=== PATIENT | female | born 1955 | race Caucasian/White ===

== ENCOUNTER 2017-02-05 18:55 | Emergency (ER) | payer MEDICAID ==
[~2017-02-05 18:55] MED LIST: PROVENTIL0.09 MG/A1 INH
[2017-02-05 21:15] VITALS: BP 101/78
== END 2017-02-05 21:15 | disposition home or self-care (01) ==
LOC: ED 18:55
DX: S62.336A Displaced fracture of neck of fifth metacarpal bone, right hand, initial encounter for closed fracture (principal); K21.9 Gastro-esophageal reflux disease without esophagitis; Z98.51 Tubal ligation status; W22.8XXA Striking against or struck by other objects, initial encounter; Y93.89 Activity, other specified; Y92.89 Other specified places as the place of occurrence of the external cause; Y99.8 Other external cause status
CPT/HCPCS: J1885

== ENCOUNTER 2017-04-22 22:28 | Emergency (ER) | payer MEDICAID ==
[2017-04-22 23:38] LABS: PLATELET COUNT 325 x10^3mcL (130-400)
[2017-04-22 23:55] LABS: CALCIUM 9.7 mg/dL (8.5-10.1); CARBON DIOXIDE 28.8 mmol/L (21-32)
[2017-04-23] LABS: BAND NEUTROPHIL 10 % (0-10); RED CELL DISTRIBUTION WIDTH 19.4 % (11.5-14.5); SEGMENTED NEUTROPHILS 80 % (37-75)
[2017-04-23 00:01] LABS: BILIRUBIN TOTAL 0.5 mg/dL (0.20-1.00); MONOCYTE 4 % (0-7); TOTAL PROTEIN, SERUM 7.8 g/dL (6.4-8.2); rbc morphology (normal/abnorm) NORMAL (NORMAL)
[2017-04-23 00:03] LABS: ALBUMIN 3.3 g/dL (3.4-5.0)
[2017-04-23 00:11] LABS: CK-MB 0.7 ng/mL (0-3.6)
[2017-04-23 00:34] VITALS: BP 107/52
== END 2017-04-23 00:34 | disposition left against medical advice (07) ==
LOC: ED 22:28
PROVIDERS: Emergency Medicine
DX: J96.00 Acute respiratory failure, unspecified whether with hypoxia or hypercapnia (principal); J18.1 Lobar pneumonia, unspecified organism; J44.9 Chronic obstructive pulmonary disease, unspecified; I10 Essential (primary) hypertension
CPT/HCPCS: 36415; 83880; J7613; J7644; Q0092

== ENCOUNTER 2018-03-05 04:13 | Inpatient (IN) | payer MEDICAID ==
[~2018-03-05] VITALS: Ht 160 cm; Wt 55.8 kg
[~2018-03-05 04:13] MED LIST changes: +CLONIDINE HCL0.2 MG PO; +LIPI10 PO; +MEDDP PO; +SYN25 PO
[2018-03-05 05:41] LABS: BILIRUBIN TOTAL 0.17 mg/dL (0.20-1.00); CALCIUM 7.8 mg/dL (8.5-10.1); CARBON DIOXIDE 21.1 mmol/L (21-32); POTASSIUM SERUM 4.4 mmol/L (3.5-5.1)
[2018-03-05 05:53] LABS: TOTAL PROTEIN, SERUM 4.6 g/dL (6.4-8.2)
[2018-03-05 05:54] LABS: ALBUMIN 0.8 g/dL (3.4-5.0); CREATININE SERUM 6.2 mg/dL (0.6-1.0)
[2018-03-05 06:12] LABS: RED CELL DISTRIBUTION WIDTH 20.8 % (11.5-14.5)
[2018-03-05 06:13] LABS: PLATELET COUNT 386 x10^3mcL (130-400)
[2018-03-05 06:14] LABS: BASOPHIL % 0 % (0-2)
[2018-03-05 07:56] LABS: CHOLESTEROL/HDL RATIO 4.7
[2018-03-05 08:10] VITALS: BP 75/38
[2018-03-05 08:12] LABS: FREE T4 0.74 ng/dL (0.76-1.46)
[2018-03-05 08:13] LABS: T4(THYROXINE) 2.5 ug/dL (4.7-13.3)
[2018-03-05 08:35] LABS: T3 TOTAL 0.29 ng/mL
[2018-03-05 11:55] VITALS: BP 89/63
[2018-03-05 11:55] LABS: RED BLOOD CELLS 2.42 M/mm3 (4.10-5.10)
[2018-03-05 12:12] LABS: TOTAL IRON BINDING CAPACITY 100 ug/dL (250-450)
[2018-03-05 12:13] LABS: IRON 4 ug/dL (50-170)
[2018-03-05 12:29] VITALS: BP 89/63
[2018-03-05 14:38] LABS: AMPHETAMINE QUAL UR NONE DETECTED (NEG <=1000)
[2018-03-05 15:46] VITALS: BP 86/52
[2018-03-05 16:05] LABS: UA SPECIFIC GRAVITY 1.015 (1.005-1.035); microscopic required? YES; urine erythrocyte NEGATIVE (NEGATIVE)
[2018-03-05 19:33] VITALS: BP 93/50
[2018-03-05 23:10] VITALS: BP 100/56
[2018-03-06] VITALS (7 sets, daily range): BP systolic 91–112; BP diastolic 47–73
[2018-03-06 05:49] LABS: PLATELET COUNT 369 x10^3mcL (130-400)
[2018-03-06 05:55] LABS: CALCIUM 6.8 mg/dL (8.5-10.1); MAGNESIUM 2.5 mg/dL (1.8-2.4); PHOSPHOROUS 6.5 mg/dL (2.5-4.9); POTASSIUM SERUM 5.2 mmol/L (3.5-5.1)
[2018-03-06 06:07] LABS: RED CELL DISTRIBUTION WIDTH 20.6 % (11.5-14.5)
[2018-03-06 06:09] LABS: rbc morphology (normal/abnorm) ABNORMAL (NORMAL)
[2018-03-06 18:12] LABS: PLATELET COUNT 304 x10^3mcL (130-400)
[2018-03-06 18:17] LABS: RED CELL DISTRIBUTION WIDTH 18.9 % (11.5-14.5)
[2018-03-06 18:40] LABS: MONOCYTE 2 % (0-7); SEGMENTED NEUTROPHILS 93 % (37-75)
[2018-03-06 18:41] LABS: BAND NEUTROPHIL 2 % (0-10); BASOPHIL 0 % (0-2); PLATELET MORPHOLOGY PLATELETS NORMAL; rbc morphology (normal/abnorm) ABNORMAL (NORMAL)
[2018-03-07] VITALS (13 sets, daily range): BP systolic 85–122; BP diastolic 46–74; Ht 160 cm; Wt 55.8 kg
[2018-03-07 05:38] LABS: PLATELET COUNT 281 x10^3mcL (130-400)
[2018-03-07 05:45] LABS: CALCIUM 6.8 mg/dL (8.5-10.1); CARBON DIOXIDE 27.2 mmol/L (21-32); MAGNESIUM 1.8 mg/dL (1.8-2.4); PHOSPHOROUS 4.8 mg/dL (2.5-4.9); POTASSIUM SERUM 3.7 mmol/L (3.5-5.1)
[2018-03-07 05:46] LABS: rbc morphology (normal/abnorm) ABNORMAL (NORMAL)
[2018-03-07 05:52] LABS: CREATININE SERUM 4.6 mg/dL (0.6-1.0)
[2018-03-07 17:56] LABS: PLATELET COUNT 275 x10^3mcL (130-400)
[2018-03-07 18:29] LABS: RED CELL DISTRIBUTION WIDTH 18.2 % (11.5-14.5)
[2018-03-07 18:45] LABS: BAND NEUTROPHIL 0 % (0-10); BASOPHIL 0 % (0-2); MONOCYTE 3 % (0-7); SEGMENTED NEUTROPHILS 86 % (37-75)
[2018-03-07 18:47] LABS: tear drop cell (dacryocyte) 1+
[2018-03-07 18:48] LABS: burr cell (echinocyte) 1+; rbc morphology (normal/abnorm) ABNORMAL (NORMAL)
[2018-03-08 04:00] VITALS: BP 95/60
[2018-03-08 05:44] LABS: PLATELET COUNT 269 x10^3mcL (130-400)
[2018-03-08 05:50] LABS: CALCIUM 6.6 mg/dL (8.5-10.1); CARBON DIOXIDE 26.5 mmol/L (21-32); PHOSPHOROUS 4.4 mg/dL (2.5-4.9); POTASSIUM SERUM 4.1 mmol/L (3.5-5.1)
[2018-03-08 05:51] LABS: RED CELL DISTRIBUTION WIDTH 17.9 % (11.5-14.5)
[2018-03-08 05:55] LABS: CREATININE SERUM 5.8 mg/dL (0.6-1.0)
[2018-03-08 06:11] LABS: BASOPHIL % 0.1 % (0-2)
[2018-03-08 07:19] VITALS: BP 122/74
[2018-03-08 12:16] VITALS: BP 115/80
[2018-03-08 16:10] VITALS: BP 116/78
[2018-03-08 21:38] VITALS: BP 106/76
[2018-03-09 05:30] VITALS: BP 102/69
[2018-03-09 07:19] LABS: PLATELET COUNT 297 x10^3mcL (130-400)
[2018-03-09 07:28] LABS: RED CELL DISTRIBUTION WIDTH 18.7 % (11.5-14.5)
[2018-03-09 07:30] LABS: CALCIUM 6.8 mg/dL (8.5-10.1); CARBON DIOXIDE 28.4 mmol/L (21-32); MAGNESIUM 1.7 mg/dL (1.8-2.4); PHOSPHOROUS 3.7 mg/dL (2.5-4.9); POTASSIUM SERUM 4.2 mmol/L (3.5-5.1)
[2018-03-09 07:32] LABS: CREATININE SERUM 4.3 mg/dL (0.6-1.0)
[2018-03-09 09:15] VITALS: BP 114/79
[2018-03-09 09:30] LABS: BAND NEUTROPHIL 0 % (0-10); BASOPHIL 0 % (0-2); MONOCYTE 7 % (0-7); SEGMENTED NEUTROPHILS 78 % (37-75)
[2018-03-09 09:32] LABS: PLATELET MORPHOLOGY PLATELETS NORMAL; rbc morphology (normal/abnorm) ABNORMAL (NORMAL)
[2018-03-09 09:33] LABS: target cell (codocyte) 1+
[2018-03-09 12:08] VITALS: BP 126/82
[2018-03-09 16:40] VITALS: BP 139/83
[2018-03-09 21:10] VITALS: BP 128/81
[2018-03-10 05:20] VITALS: BP 127/72
[2018-03-10 08:21] LABS: PLATELET COUNT 311 x10^3mcL (130-400)
[2018-03-10 08:41] VITALS: BP 104/64
[2018-03-10 08:41] LABS: CALCIUM 7.3 mg/dL (8.5-10.1); CARBON DIOXIDE 26.4 mmol/L (21-32); MAGNESIUM 2.5 mg/dL (1.8-2.4); POTASSIUM SERUM 4.5 mmol/L (3.5-5.1)
[2018-03-10 08:49] LABS: CREATININE SERUM 5.3 mg/dL (0.6-1.0)
[2018-03-10 11:21] LABS: BAND NEUTROPHIL 1 % (0-10); BASOPHIL 0 % (0-2); MONOCYTE 3 % (0-7); SEGMENTED NEUTROPHILS 86 % (37-75)
[2018-03-10 11:25] LABS: rbc morphology (normal/abnorm) ABNORMAL (NORMAL)
[2018-03-10 11:26] LABS: PLATELET MORPHOLOGY PLATELETS NORMAL; RED CELL DISTRIBUTION WIDTH 18.2 % (11.5-14.5)
[2018-03-10 12:14] VITALS: BP 141/101
[2018-03-10] MEDS ORDERED: LEVAQUIN250 M1 PO (15:45)
[2018-03-10 15:47] VITALS: BP 141/101
[2018-03-10] MEDS ORDERED: NATURAL IRON65 MG PO (16:08)
[2018-03-10] MEDS ORDERED: NEP PO (16:12)
[2018-03-10] MEDS ORDERED: NIC14 TD (16:12)
[2018-03-10] MEDS ORDERED: REN800 PO (16:12)
[2018-03-10 16:38] VITALS: BP 98/67
== END 2018-03-10 16:50 | disposition home health service (06) | DRG 137 ==
LOC: ED 04:13 → DU 05:20 → IC 05:20 → DU 05:37 → ED 05:37 → DU 07:39 → IC 08:30 → DU 09:41
PROVIDERS: Emergency Medicine Emergency Medical Services; Family Medicine
DX: J69.0 Pneumonitis due to inhalation of food and vomit (principal); J96.01 Acute respiratory failure with hypoxia; N17.0 Acute kidney failure with tubular necrosis; N18.6 End stage renal disease; E43 Unspecified severe protein-calorie malnutrition; E87.2 Acidosis; I12.0 Hypertensive chronic kidney disease with stage 5 chronic kidney disease or end stage renal disease; J44.1 Chronic obstructive pulmonary disease with (acute) exacerbation; R55 Syncope and collapse; K21.9 Gastro-esophageal reflux disease without esophagitis; E03.9 Hypothyroidism, unspecified; D50.9 Iron deficiency anemia, unspecified; E87.5 Hyperkalemia; E83.39 Other disorders of phosphorus metabolism; Z68.1 Body mass index [BMI] 19.9 or less, adult; Z99.2 Dependence on renal dialysis
CPT/HCPCS: 36556; 36600; 83880; 84439; 94150; 97110-GP; 97116-GP; 97530-GP; 97535-GP; J1642; J1644; J1815; J1940; J1956; J2060; J2405; J2916; J2920; J2930; J3475; J3490; J7030; J7040; J7050; J7620; J7626; P9016; Q0092; Q0163

== ENCOUNTER 2018-03-22 17:21 | Emergency (ER) | payer MEDICAID ==
[~2018-03-22] VITALS: Ht 162.6 cm; Wt 49.9 kg
[~2018-03-22 17:21] MED LIST changes: +LEVAQUIN250 M1 PO; +NATURAL IRON65 MG PO; +NEP PO; +NIC14 TD; +REN800 PO
[2018-03-22 17:27] VITALS: Ht 162.6 cm; Wt 49.9 kg
[2018-03-22 18:11] VITALS: BP 108/78
== END 2018-03-22 18:11 | disposition home or self-care (01) ==
LOC: ED 17:21
DX: B02.9 Zoster without complications (principal); J44.9 Chronic obstructive pulmonary disease, unspecified; I12.0 Hypertensive chronic kidney disease with stage 5 chronic kidney disease or end stage renal disease; N18.6 End stage renal disease; M32.9 Systemic lupus erythematosus, unspecified; Z99.2 Dependence on renal dialysis

== ENCOUNTER 2018-03-27 12:04 | Emergency (ER) | payer MEDICAID ==
[~2018-03-27] VITALS: Ht 167.6 cm; Wt 50.8 kg
[2018-03-27 12:14] VITALS: Ht 167.6 cm; Wt 50.8 kg
[2018-03-27 12:46] LABS: BASOPHIL % 0.5 % (0-2)
[2018-03-27 12:55] LABS: PLATELET COUNT 418 x10^3mcL (130-400); RED CELL DISTRIBUTION WIDTH 21.4 % (11.5-14.5); rbc morphology (normal/abnorm) ABNORMAL (NORMAL)
[2018-03-27 13:04] LABS: BILIRUBIN TOTAL 0.14 mg/dL (0.20-1.00); CALCIUM 7.7 mg/dL (8.5-10.1); CARBON DIOXIDE 28.9 mmol/L (21-32); POTASSIUM SERUM 4.1 mmol/L (3.5-5.1)
[2018-03-27 13:19] LABS: ALBUMIN 0.9 g/dL (3.4-5.0); TOTAL PROTEIN, SERUM 4.7 g/dL (6.4-8.2)
[2018-03-27 13:20] LABS: CREATININE SERUM 5.5 mg/dL (0.6-1.0)
[2018-03-27 14:01] VITALS: BP 108/74
== END 2018-03-27 14:01 | disposition home or self-care (01) ==
LOC: ED 12:04
PROVIDERS: Emergency Medicine
DX: G25.3 Myoclonus (principal); I12.0 Hypertensive chronic kidney disease with stage 5 chronic kidney disease or end stage renal disease; N18.6 End stage renal disease; J44.9 Chronic obstructive pulmonary disease, unspecified; D64.9 Anemia, unspecified; M32.9 Systemic lupus erythematosus, unspecified; K21.9 Gastro-esophageal reflux disease without esophagitis; F17.210 Nicotine dependence, cigarettes, uncomplicated
CPT/HCPCS: 36415

== ENCOUNTER 2018-03-29 18:51 | Inpatient (IN) | payer MEDICAID ==
[~2018-03-29] VITALS: Ht 160 cm; Wt 50.8 kg
[2018-03-29 21:39] LABS: BASOPHIL % 0.9 % (0-2)
[2018-03-29 21:44] LABS: BILIRUBIN TOTAL 0.15 mg/dL (0.20-1.00); CALCIUM 7.9 mg/dL (8.5-10.1); CARBON DIOXIDE 25.2 mmol/L (21-32); POTASSIUM SERUM 4.9 mmol/L (3.5-5.1)
[2018-03-29 21:46] LABS: RED CELL DISTRIBUTION WIDTH 23.8 % (11.5-14.5)
[2018-03-29 21:47] LABS: PLATELET COUNT 493 x10^3mcL (130-400)
[2018-03-29 21:51] LABS: ALBUMIN 0.9 g/dL (3.4-5.0); TOTAL PROTEIN, SERUM 4.8 g/dL (6.4-8.2)
[2018-03-29 21:52] LABS: CREATININE SERUM 6.4 mg/dL (0.6-1.0)
[2018-03-30 00:11] LABS: MAGNESIUM 2.3 mg/dL (1.8-2.4); PHOSPHOROUS 7.9 mg/dL (2.5-4.9)
[2018-03-30 00:14] LABS: CHOLESTEROL/HDL RATIO 5.1
[2018-03-30 00:19] LABS: FREE T4 0.68 ng/dL (0.76-1.46)
[2018-03-30 00:21] LABS: FREE THYROXINE INDEX 1.1 ug/dL (1.4-4.5); T4(THYROXINE) 3.3 ug/dL (4.7-13.3)
[2018-03-30 00:37] LABS: T3 TOTAL 0.8 ng/mL
[2018-03-30 00:38] VITALS: BP 133/74
[2018-03-30 00:43] VITALS: BP 147/87
[2018-03-30] MEDS ORDERED: NEU300 PO (03:23)
[2018-03-30 04:50] LABS: IRON 28 ug/dL (50-170); TOTAL IRON BINDING CAPACITY 118 ug/dL (250-450)
[2018-03-30 06:00] VITALS: BP 133/78
[2018-03-30 07:27] LABS: RED BLOOD CELLS 2.4 M/mm3 (4.10-5.10)
[2018-03-30 09:32] VITALS: Ht 160 cm; Wt 50.8 kg
[2018-03-30 10:07] VITALS: BP 111/66
[2018-03-30 13:38] LABS: microscopic required? YES; urine erythrocyte NEGATIVE (NEGATIVE)
[2018-03-30 20:29] VITALS: BP 120/78
[2018-03-31 05:40] VITALS: BP 139/93
[2018-03-31 06:19] VITALS: BP 120/76
[2018-03-31 06:35] LABS: CALCIUM 8.1 mg/dL (8.5-10.1); CARBON DIOXIDE 23.2 mmol/L (21-32); MAGNESIUM 2.6 mg/dL (1.8-2.4); PHOSPHOROUS 7.9 mg/dL (2.5-4.9); POTASSIUM SERUM 5.3 mmol/L (3.5-5.1)
[2018-03-31 06:39] LABS: BASOPHIL % 0.7 % (0-2)
[2018-03-31 07:07] LABS: CREATININE SERUM 6.3 mg/dL (0.6-1.0)
[2018-03-31 08:01] LABS: PLATELET COUNT 506 x10^3mcL (130-400); RED CELL DISTRIBUTION WIDTH 23.7 % (11.5-14.5)
[2018-03-31 08:02] LABS: rbc morphology (normal/abnorm) ABNORMAL (NORMAL)
[2018-03-31 08:34] VITALS: BP 149/96
[2018-03-31 13:25] VITALS: BP 124/88
[2018-03-31 15:38] VITALS: BP 114/85
[2018-03-31 21:47] VITALS: BP 141/98
[2018-04-01 05:05] VITALS: BP 120/70
[2018-04-01 06:50] LABS: CALCIUM 7.6 mg/dL (8.5-10.1); CARBON DIOXIDE 26.9 mmol/L (21-32); CREATININE SERUM 3.9 mg/dL (0.6-1.0); MAGNESIUM 1.9 mg/dL (1.8-2.4); POTASSIUM SERUM 3.7 mmol/L (3.5-5.1)
[2018-04-01 07:05] LABS: BASOPHIL % 0.5 % (0-2); PLATELET COUNT 368 x10^3mcL (130-400)
[2018-04-01 07:12] LABS: RED CELL DISTRIBUTION WIDTH 23.4 % (11.5-14.5)
[2018-04-01 08:50] VITALS: BP 133/82
[2018-04-01 12:59] VITALS: BP 120/75
[2018-04-01 13:05] LABS: rbc morphology (normal/abnorm) ABNORMAL (NORMAL)
[2018-04-01 14:30] VITALS: BP 105/65
[2018-04-01 15:43] VITALS: BP 126/74
[2018-04-01 16:32] LABS: BASOPHIL % 0.4 % (0-2); PLATELET COUNT 298 x10^3mcL (130-400)
[2018-04-01 16:33] LABS: RED CELL DISTRIBUTION WIDTH 24.1 % (11.5-14.5)
[2018-04-01 16:40] LABS: rbc morphology (normal/abnorm) ABNORMAL (NORMAL)
[2018-04-01 20:34] VITALS: BP 99/64
[2018-04-02] VITALS (7 sets, daily range): BP systolic 99–131; BP diastolic 55–85
[2018-04-02 06:58] LABS: BASOPHIL % 0.9 % (0-2); PLATELET COUNT 337 x10^3mcL (130-400)
[2018-04-02 07:07] LABS: CALCIUM 7.5 mg/dL (8.5-10.1); CARBON DIOXIDE 27.8 mmol/L (21-32); CREATININE SERUM 3.9 mg/dL (0.6-1.0); PHOSPHOROUS 5.7 mg/dL (2.5-4.9); POTASSIUM SERUM 3.6 mmol/L (3.5-5.1)
[2018-04-02 08:30] LABS: RED CELL DISTRIBUTION WIDTH 25.5 % (11.5-14.5)
[2018-04-02 10:45] LABS: rbc morphology (normal/abnorm) ABNORMAL (NORMAL)
[2018-04-02] MEDS ORDERED: ZOVIRAX400 MG PO (15:53)
[2018-04-02] MEDS ORDERED: NIC14 TD (15:55)
[2018-04-02] MEDS ORDERED: FER300 PO (15:56)
[2018-04-02] MEDS ORDERED: COL100 PO (15:57)
[2018-04-02 17:24] LABS: BASOPHIL % 1.2 % (0-2); PLATELET COUNT 287 x10^3mcL (130-400)
[2018-04-02 17:31] LABS: RED CELL DISTRIBUTION WIDTH 20.8 % (11.5-14.5)
== END 2018-04-02 19:30 | disposition home or self-care (01) | DRG 206 ==
LOC: ED 18:51 → DU 22:09 → MU 22:09 → DU 03-30 00:18 → MU 03-30 09:59 → DU 03-31 19:41
PROVIDERS: Emergency Medicine; Family Medicine; Surgery
PROC: 02HV33Z Insertion of Infusion Device into Superior Vena Cava, Percutaneous Approach (ICD-10-PCS; 2018-03-31)
PROC: B5181ZA Fluoroscopy of Superior Vena Cava using Low Osmolar Contrast, Guidance (ICD-10-PCS; 2018-03-31)
PROC: 5A1D70Z Performance of Urinary Filtration, Intermittent, Less than 6 Hours Per Day (ICD-10-PCS; 2018-03-31)
PROC: 0JH63XZ Insertion of Tunneled Vascular Access Device into Chest Subcutaneous Tissue and Fascia, Percutaneous Approach (ICD-10-PCS; principal; 2018-03-31 12:00)
PROC: 5A1D70Z Performance of Urinary Filtration, Intermittent, Less than 6 Hours Per Day (ICD-10-PCS; 2018-04-01)
PROC: 30233N1 Transfusion of Nonautologous Red Blood Cells into Peripheral Vein, Percutaneous Approach (ICD-10-PCS; 2018-04-02)
DX: T82.818A Embolism due to vascular prosthetic devices, implants and grafts, initial encounter (principal); N17.0 Acute kidney failure with tubular necrosis; E43 Unspecified severe protein-calorie malnutrition; I12.0 Hypertensive chronic kidney disease with stage 5 chronic kidney disease or end stage renal disease; N18.6 End stage renal disease; J44.9 Chronic obstructive pulmonary disease, unspecified; D64.9 Anemia, unspecified; K21.9 Gastro-esophageal reflux disease without esophagitis; Z99.2 Dependence on renal dialysis; Y83.8 Other surgical procedures as the cause of abnormal reaction of the patient, or of later complication, without mention of misadventure at the time of the procedure; Y92.89 Other specified places as the place of occurrence of the external cause; E78.5 Hyperlipidemia, unspecified; B02.9 Zoster without complications
CPT/HCPCS: 83880; 84439; 97110-GP; 97530-GP; A4301; A4719; J0885-EC; J1644; J1956; J2250; J2916; J2997; J3010; J3490; J7030; J7040; J7050; J7620; P9016; P9045; Q0092; Q0163

== ENCOUNTER 2018-05-10 23:08 | Emergency (ER) | payer MEDICAID ==
[~2018-05-10] VITALS: Ht 162.6 cm; Wt 50.3 kg
[~2018-05-10 23:08] MED LIST changes: +COL100 PO; +FER300 PO; +NEU300 PO; +ZOVIRAX400 MG PO
[2018-05-10 23:26] VITALS: BP 170/110
== END 2018-05-11 01:29 | disposition left against medical advice (07) ==
LOC: ED 23:08
DX: Z53.21 Procedure and treatment not carried out due to patient leaving prior to being seen by health care provider (principal)

== ENCOUNTER 2018-05-12 22:34 | Emergency (ER) | payer MEDICAID ==
[~2018-05-12] VITALS: Ht 162.6 cm; Wt 48.1 kg
[2018-05-12 22:46] VITALS: Ht 162.6 cm; Wt 48.1 kg
[2018-05-13 00:15] LABS: BASOPHIL % 0.9 % (0-2); PLATELET COUNT 304 x10^3mcL (130-400)
[2018-05-13 00:24] LABS: UA SPECIFIC GRAVITY 1.015 (1.005-1.035); microscopic required? YES; urine erythrocyte 1+ (NEGATIVE)
[2018-05-13 00:27] LABS: CALCIUM 8.3 mg/dL (8.5-10.1); CARBON DIOXIDE 18.3 mmol/L (21-32); POTASSIUM SERUM 3.8 mmol/L (3.5-5.1)
[2018-05-13 00:29] LABS: CREATININE SERUM 5.9 mg/dL (0.6-1.0)
[2018-05-13 03:20] VITALS: BP 146/87
== END 2018-05-13 03:20 | disposition home or self-care (01) ==
LOC: ED 22:34
PROVIDERS: Emergency Medicine
DX: I12.0 Hypertensive chronic kidney disease with stage 5 chronic kidney disease or end stage renal disease (principal); N18.6 End stage renal disease; J44.1 Chronic obstructive pulmonary disease with (acute) exacerbation; Z99.2 Dependence on renal dialysis
CPT/HCPCS: 36415; J7613; J7644

== ENCOUNTER 2018-06-25 16:00 | Emergency (ER) | payer MEDICAID ==
[~2018-06-25] VITALS: Ht 160 cm; Wt 46.3 kg
[2018-06-25 16:22] VITALS: Ht 160 cm; Wt 46.3 kg
[2018-06-25 17:39] LABS: BASOPHIL % 0.6 % (0-2); PLATELET COUNT 282 x10^3mcL (130-400)
[2018-06-25 17:45] LABS: RED CELL DISTRIBUTION WIDTH 17.6 % (11.5-14.5)
[2018-06-25 17:56] LABS: BILIRUBIN TOTAL 0.2 mg/dL (0.20-1.00); CALCIUM 11.5 mg/dL (8.5-10.1); CARBON DIOXIDE 17.9 mmol/L (21-32); POTASSIUM SERUM 5.2 mmol/L (3.5-5.1)
[2018-06-25 18:00] LABS: ALBUMIN 2.2 g/dL (3.4-5.0); CREATININE SERUM 4.9 mg/dL (0.6-1.0); TOTAL PROTEIN, SERUM 5.6 g/dL (6.4-8.2)
[2018-06-25 18:51] VITALS: BP 153/122
== END 2018-06-25 18:51 | disposition home or self-care (01) ==
LOC: ED 16:00
PROVIDERS: Specialist
DX: I12.9 Hypertensive chronic kidney disease with stage 1 through stage 4 chronic kidney disease, or unspecified chronic kidney disease (principal); N18.9 Chronic kidney disease, unspecified; J44.9 Chronic obstructive pulmonary disease, unspecified
CPT/HCPCS: 36415; 36600; 83880; Q0092

== ENCOUNTER 2018-08-11 16:29 | Inpatient (IN) | payer MEDICAID ==
[~2018-08-11] VITALS: Ht 162.6 cm; Wt 46.4 kg
[2018-08-11 16:54] VITALS: Ht 162.6 cm; Wt 46.4 kg
[2018-08-11 18:57] LABS: BILIRUBIN TOTAL 0.3 mg/dL (0.20-1.00); CALCIUM 10.4 mg/dL (8.5-10.1); CARBON DIOXIDE 18.5 mmol/L (21-32); POTASSIUM SERUM 5.5 mmol/L (3.5-5.1); TOTAL PROTEIN, SERUM 7.1 g/dL (6.4-8.2)
[2018-08-11 19:03] LABS: BASOPHIL % 0.8 % (0-2); PLATELET COUNT 316 x10^3mcL (130-400); RED CELL DISTRIBUTION WIDTH 16.4 % (11.5-14.5)
[2018-08-11 19:04] LABS: CREATININE SERUM 4.7 mg/dL (0.6-1.0)
[2018-08-11 19:47] LABS: UA SPECIFIC GRAVITY 1.025 (1.005-1.035); microscopic required? YES; urine erythrocyte 1+ (NEGATIVE)
[2018-08-11 19:58] LABS: AMPHETAMINE QUAL UR NONE DETECTED (See below)
[2018-08-11 20:28] LABS: MAGNESIUM 2.5 mg/dL (1.8-2.4); PHOSPHOROUS 7.9 mg/dL (2.5-4.9)
[2018-08-11 20:35] LABS: T3 TOTAL 0.83 ng/mL
[2018-08-11 20:44] LABS: CHOLESTEROL/HDL RATIO 5.3
[2018-08-11 20:50] LABS: FREE T4 0.74 ng/dL (0.76-1.46)
[2018-08-11 20:52] LABS: FREE THYROXINE INDEX 1.6 ug/dL (1.4-4.5); T4(THYROXINE) 4.6 ug/dL (4.7-13.3)
[2018-08-11 21:13] VITALS: BP 145/95
[2018-08-12 05:01] VITALS: BP 137/82
[2018-08-12 07:19] LABS: CALCIUM 10.9 mg/dL (8.5-10.1); CARBON DIOXIDE 17.7 mmol/L (21-32); MAGNESIUM 2.4 mg/dL (1.8-2.4); PHOSPHOROUS 8.3 mg/dL (2.5-4.9); POTASSIUM SERUM 4.5 mmol/L (3.5-5.1)
[2018-08-12 07:22] LABS: CREATININE SERUM 4.4 mg/dL (0.6-1.0)
[2018-08-12 07:25] LABS: BASOPHIL % 0.7 % (0-2); PLATELET COUNT 285 x10^3mcL (130-400)
[2018-08-12 09:24] VITALS: BP 124/76
[2018-08-12 14:01] VITALS: BP 123/73
== END 2018-08-12 18:30 | disposition home or self-care (01) | DRG 199 ==
LOC: ED 16:29 → DU 19:32
PROVIDERS: Emergency Medicine; General Practice
DX: I16.0 Hypertensive urgency (principal); N17.0 Acute kidney failure with tubular necrosis; E87.5 Hyperkalemia; I12.0 Hypertensive chronic kidney disease with stage 5 chronic kidney disease or end stage renal disease; N18.6 End stage renal disease; E44.0 Moderate protein-calorie malnutrition; R73.03 Prediabetes; E83.41 Hypermagnesemia; E83.39 Other disorders of phosphorus metabolism; R80.9 Proteinuria, unspecified; E78.5 Hyperlipidemia, unspecified; F11.11 Opioid abuse, in remission; F17.210 Nicotine dependence, cigarettes, uncomplicated; Z99.2 Dependence on renal dialysis; Z91.15 Patient's noncompliance with renal dialysis
CPT/HCPCS: 82962; 83880; 84439; J1815; J2060; J3490; J7030; J7613; Q0092

== ENCOUNTER 2018-08-28 16:22 | Emergency (ER) | payer MEDICAID ==
[~2018-08-28] VITALS: Ht 162.6 cm; Wt 45.4 kg
[2018-08-28 16:25] VITALS: Ht 162.6 cm; Wt 45.4 kg
[2018-08-28 17:06] LABS: BASOPHIL % 0.7 % (0-2); PLATELET COUNT 386 x10^3mcL (130-400)
[2018-08-28 17:07] LABS: RED CELL DISTRIBUTION WIDTH 15.5 % (11.5-14.5)
[2018-08-28 17:17] LABS: CARBON DIOXIDE 16.2 mmol/L (21-32)
[2018-08-28 17:31] LABS: CREATININE SERUM 4.9 mg/dL (0.6-1.0)
[2018-08-28 18:19] VITALS: BP 172/88
== END 2018-08-28 18:19 | disposition home or self-care (01) ==
LOC: ED 16:22
PROVIDERS: Emergency Medicine
DX: N18.9 Chronic kidney disease, unspecified (principal); K21.9 Gastro-esophageal reflux disease without esophagitis; F11.10 Opioid abuse, uncomplicated
CPT/HCPCS: 36415

== ENCOUNTER 2018-09-14 15:41 | Emergency (ER) | payer MEDICAID ==
[~2018-09-14] VITALS: Ht 162.6 cm; Wt 50.8 kg
[2018-09-14 15:42] VITALS: Ht 162.6 cm; Wt 50.8 kg
[2018-09-14 16:12] LABS: BASOPHIL % 0.4 % (0-2); PLATELET COUNT 284 x10^3mcL (130-400)
[2018-09-14 16:15] LABS: RED CELL DISTRIBUTION WIDTH 16.1 % (11.5-14.5)
[2018-09-14 16:22] LABS: CARBON DIOXIDE 20.2 mmol/L (21-32); CREATININE SERUM 3.8 mg/dL (0.6-1.0); POTASSIUM SERUM 5.1 mmol/L (3.5-5.1)
[2018-09-14 16:45] VITALS: BP 163/90
== END 2018-09-14 16:45 | disposition home or self-care (01) ==
LOC: ED 15:41
PROVIDERS: Emergency Medicine
DX: I12.9 Hypertensive chronic kidney disease with stage 1 through stage 4 chronic kidney disease, or unspecified chronic kidney disease (principal); N18.9 Chronic kidney disease, unspecified; J44.9 Chronic obstructive pulmonary disease, unspecified; K21.9 Gastro-esophageal reflux disease without esophagitis; F11.10 Opioid abuse, uncomplicated; Z99.2 Dependence on renal dialysis; Z98.51 Tubal ligation status
CPT/HCPCS: 36415

== ENCOUNTER 2018-11-03 19:01 | Emergency (ER) | payer MEDICAID ==
[~2018-11-03] VITALS: Ht 160 cm; Wt 56.2 kg
[2018-11-03 19:07] VITALS: Ht 160 cm; Wt 56.2 kg
[2018-11-03 21:15] LABS: BASOPHIL % 0.6 % (0-2); PLATELET COUNT 275 x10^3mcL (130-400)
[2018-11-03 21:18] LABS: RED CELL DISTRIBUTION WIDTH 15.8 % (11.5-14.5)
[2018-11-03 21:32] LABS: BILIRUBIN TOTAL 0.18 mg/dL (0.20-1.00); CALCIUM 9.6 mg/dL (8.5-10.1); CARBON DIOXIDE 19.4 mmol/L (21-32); CREATININE SERUM 3.7 mg/dL (0.6-1.0); PHOSPHOROUS 7.6 mg/dL (2.5-4.9); POTASSIUM SERUM 4.9 mmol/L (3.5-5.1); TOTAL PROTEIN, SERUM 7.2 g/dL (6.4-8.2); URIC ACID 3.6 mg/dL (2.6-6.0)
[2018-11-03 21:33] LABS: ALBUMIN 3.2 g/dL (3.4-5.0)
[2018-11-03 23:47] VITALS: BP 167/115
== END 2018-11-03 22:35 | disposition left against medical advice (07) ==
LOC: ED 19:01
PROVIDERS: Emergency Medicine
DX: I12.0 Hypertensive chronic kidney disease with stage 5 chronic kidney disease or end stage renal disease (principal); E87.2 Acidosis; N18.6 End stage renal disease; K21.9 Gastro-esophageal reflux disease without esophagitis; J44.9 Chronic obstructive pulmonary disease, unspecified; M32.9 Systemic lupus erythematosus, unspecified; Z98.51 Tubal ligation status; Z99.2 Dependence on renal dialysis
CPT/HCPCS: 36415; Q0092

== ENCOUNTER 2019-01-18 18:12 | Emergency (ER) | payer MEDICAID ==
[~2019-01-18] VITALS: Ht 162.6 cm; Wt 52.2 kg
[2019-01-18 18:24] VITALS: Ht 162.6 cm; Wt 52.2 kg
[2019-01-18 20:40] VITALS: BP 150/72
== END 2019-01-18 21:10 | disposition home or self-care (01) ==
LOC: ED 18:12
DX: M25.552 Pain in left hip (principal); H10.89 Other conjunctivitis; J44.9 Chronic obstructive pulmonary disease, unspecified; I10 Essential (primary) hypertension; K21.9 Gastro-esophageal reflux disease without esophagitis; F11.10 Opioid abuse, uncomplicated; Z99.2 Dependence on renal dialysis; Z98.51 Tubal ligation status

== ENCOUNTER 2019-03-26 16:38 | Emergency (ER) | payer MEDICAID ==
[~2019-03-26] VITALS: Ht 162.6 cm; Wt 54.9 kg
[2019-03-26 16:52] VITALS: Ht 162.6 cm; Wt 54.9 kg
[2019-03-26 17:19] LABS: BASOPHIL % 0.3 % (0-2); PLATELET COUNT 308 x10^3mcL (130-400)
[2019-03-26 17:25] LABS: RED CELL DISTRIBUTION WIDTH 16.3 % (11.5-14.5)
[2019-03-26 17:36] LABS: BILIRUBIN TOTAL 0.26 mg/dL (0.20-1.00); CALCIUM 11.4 mg/dL (8.5-10.1); CARBON DIOXIDE 19.7 mmol/L (21-32); POTASSIUM SERUM 4.7 mmol/L (3.5-5.1); TOTAL PROTEIN, SERUM 6.3 g/dL (6.4-8.2)
[2019-03-26 17:42] LABS: ALBUMIN 2.9 g/dL (3.4-5.0)
[2019-03-26 18:36] VITALS: BP 159/106
== END 2019-03-26 18:36 | disposition home or self-care (01) ==
LOC: ED 16:38
PROVIDERS: Emergency Medicine
DX: I12.0 Hypertensive chronic kidney disease with stage 5 chronic kidney disease or end stage renal disease (principal); N18.6 End stage renal disease; D64.9 Anemia, unspecified; F17.210 Nicotine dependence, cigarettes, uncomplicated; J44.9 Chronic obstructive pulmonary disease, unspecified; K21.9 Gastro-esophageal reflux disease without esophagitis; F11.10 Opioid abuse, uncomplicated; Z98.51 Tubal ligation status
CPT/HCPCS: 36415; 99406

== ENCOUNTER 2019-04-25 18:28 | Emergency (ER) | payer MEDICAID ==
[~2019-04-25] VITALS: Ht 165.1 cm; Wt 53.5 kg
[2019-04-25 18:42] VITALS: BP 152/74; Ht 165.1 cm; Wt 53.5 kg
[2019-04-25 20:50] LABS: BILIRUBIN TOTAL 0.25 mg/dL (0.20-1.00); CALCIUM 12.5 mg/dL (8.5-10.1); CARBON DIOXIDE 20.1 mmol/L (21-32); POTASSIUM SERUM 4.1 mmol/L (3.5-5.1); TOTAL PROTEIN, SERUM 6.4 g/dL (6.4-8.2)
[2019-04-25 20:51] LABS: ALBUMIN 3.1 g/dL (3.4-5.0)
[2019-04-25 20:52] LABS: CREATININE SERUM 5.7 mg/dL (0.6-1.0)
[2019-04-25 20:56] LABS: BASOPHIL % 0.6 % (0-2); PLATELET COUNT 231 x10^3mcL (130-400)
[2019-04-25 20:58] LABS: RED CELL DISTRIBUTION WIDTH 15.3 % (11.5-14.5)
== END 2019-04-25 21:34 | disposition home or self-care (01) ==
LOC: ED 18:28
PROVIDERS: Emergency Medicine
DX: I12.0 Hypertensive chronic kidney disease with stage 5 chronic kidney disease or end stage renal disease (principal); N18.6 End stage renal disease; Z99.2 Dependence on renal dialysis
CPT/HCPCS: 36415

== ENCOUNTER 2019-05-07 12:07 | Emergency (ER) | payer MEDICAID ==
[~2019-05-07] VITALS: Ht 162.6 cm; Wt 53.6 kg
[2019-05-07 12:32] VITALS: Ht 162.6 cm; Wt 53.6 kg
[2019-05-07 13:43] LABS: CALCIUM 11.3 mg/dL (8.5-10.1); POTASSIUM SERUM 4.4 mmol/L (3.5-5.1)
[2019-05-07 13:47] LABS: CREATININE SERUM 4.9 mg/dL (0.6-1.0)
[2019-05-07 14:02] VITALS: BP 156/89
== END 2019-05-07 14:02 | disposition home or self-care (01) ==
LOC: ED 12:07
PROVIDERS: Emergency Medicine
DX: I12.0 Hypertensive chronic kidney disease with stage 5 chronic kidney disease or end stage renal disease (principal); N18.6 End stage renal disease; F11.10 Opioid abuse, uncomplicated; J44.9 Chronic obstructive pulmonary disease, unspecified; K21.9 Gastro-esophageal reflux disease without esophagitis; Z99.2 Dependence on renal dialysis; Z98.51 Tubal ligation status
CPT/HCPCS: 36415

== ENCOUNTER 2019-05-25 18:54 | Emergency (ER) | payer MEDICAID ==
[~2019-05-25] VITALS: Ht 162.6 cm; Wt 53.1 kg
[2019-05-25 19:04] VITALS: Ht 162.6 cm; Wt 53.1 kg
[2019-05-25 21:33] LABS: BASOPHIL % 0.6 % (0-2); PLATELET COUNT 273 x10^3mcL (130-400); RED CELL DISTRIBUTION WIDTH 14.9 % (11.5-14.5)
[2019-05-25 21:49] LABS: BILIRUBIN TOTAL 0.37 mg/dL (0.20-1.00); CALCIUM 11.1 mg/dL (8.5-10.1); CARBON DIOXIDE 16.5 mmol/L (21-32); MAGNESIUM 2.9 mg/dL (1.8-2.4); PHOSPHOROUS 7.6 mg/dL (2.5-4.9); POTASSIUM SERUM 5.4 mmol/L (3.5-5.1); TOTAL PROTEIN, SERUM 6.6 g/dL (6.4-8.2)
[2019-05-25 21:56] LABS: CREATININE SERUM 5.7 mg/dL (0.6-1.0)
[2019-05-26 02:34] VITALS: BP 149/101
[2019-05-26 02:38] LABS: CHOLESTEROL/HDL RATIO 4.7
[2019-05-26 02:43] LABS: T3 TOTAL 0.76 ng/mL
[2019-05-26 02:48] LABS: FREE T4 0.89 ng/dL (0.76-1.46); FREE THYROXINE INDEX 1.6 ug/dL (1.4-4.5); T4(THYROXINE) 4.8 ug/dL (4.7-13.3)
== END 2019-05-26 02:34 | disposition left against medical advice (07) ==
LOC: ED 18:54
PROVIDERS: Emergency Medicine; General Practice
DX: E87.5 Hyperkalemia (principal); M54.5 Low back pain; I12.0 Hypertensive chronic kidney disease with stage 5 chronic kidney disease or end stage renal disease; N18.6 End stage renal disease; K21.9 Gastro-esophageal reflux disease without esophagitis; M32.9 Systemic lupus erythematosus, unspecified; F17.200 Nicotine dependence, unspecified, uncomplicated; Z98.51 Tubal ligation status; Z99.2 Dependence on renal dialysis; Z71.6 Tobacco abuse counseling
CPT/HCPCS: 83880; 84439; 99406; J2270; J2405

== ENCOUNTER 2019-06-05 17:17 | Emergency (ER) | payer MEDICAID ==
[~2019-06-05] VITALS: Ht 162.6 cm; Wt 56.7 kg
[2019-06-05 17:24] VITALS: BP 138/97; Ht 162.6 cm; Wt 56.7 kg
== END 2019-06-05 20:47 | disposition left against medical advice (07) ==
LOC: ED 17:17
DX: Z53.21 Procedure and treatment not carried out due to patient leaving prior to being seen by health care provider (principal)
CPT/HCPCS: 83880

== ENCOUNTER 2019-06-10 21:36 | Inpatient (IN) | payer MEDICAID ==
[~2019-06-10] VITALS: Ht 162.6 cm; Wt 57.0 kg
--- NOTE | 2019-06-10 21:47 | NUR ---
EKG IN PROGRESS BY ERT VANESSA
--- NOTE | 2019-06-10 21:57 | NUR ---
PT PRESENTED TO THE ED WITH C/O LOWER BACK PAIN THAT BEGAN 1 WEEK AGO. PT STS THAT SHE FELL LAST WEEK AND LANDED ON HER BOTTOM. PT CAME TO THIS ER AND STS, " THEY DID NOT PRESCRIBE ME ANY PAIN MEDICATIONS". PT RATES HER PAIN 10/10. WHEN ASKED TO DESCRIBE HER PAIN, PT STATED, " I DONT KNOW HOW IT FEELS. I JUST KNOW THAT IT HURTS". PT TOOK MOTRIN WITH MINIMAL PAIN RELIEF. PT STS THAT SHE HAS MISSED 3 DIALYSIS SESSIONS BECAUSE OF HER BACK PAIN. PT RECEIVES DIALYSIS ON TUESDAY AND TUESDAY. PT ALSO STS THAT SHE HAS HAD A COUGH FOR THE PAST 3 WEEKS. DIALYSIS PORT NOTED TO RIGHT UPPER CHEST. PT CONNECTED TO FULL WOOL DYER. WILL CONT TO MONITOR.
--- NOTE | 2019-06-10 22:00 | NUR ---
DR. PALMER AT BEDSIDE FOR MSE
--- NOTE | 2019-06-10 22:33 | NUR ---
MECHANICAL TECH AT BEDSIDE FOR LAB DRAW
[2019-06-10 22:46] LABS: BASOPHIL % 0.8 % (0-2); PLATELET COUNT 253 x10^3mcL (130-400)
[2019-06-10 22:47] LABS: RED CELL DISTRIBUTION WIDTH 15.9 % (11.5-14.5)
[2019-06-10 23:04] LABS: BILIRUBIN TOTAL 0.2 mg/dL (0.20-1.00); CALCIUM 8.7 mg/dL (8.5-10.1); CARBON DIOXIDE 15.6 mmol/L (21-32); CHOLESTEROL/HDL RATIO 5.4; POTASSIUM SERUM 4.5 mmol/L (3.5-5.1)
[2019-06-10 23:05] LABS: ALBUMIN 2.5 g/dL (3.4-5.0); TOTAL PROTEIN, SERUM 5.7 g/dL (6.4-8.2)
[2019-06-10 23:06] LABS: CREATININE SERUM 4.6 mg/dL (0.6-1.0)
[2019-06-10 23:36] LABS: T3 TOTAL 0.71 ng/mL
[2019-06-10 23:39] LABS: FREE T4 0.7 ng/dL (0.76-1.46); FREE THYROXINE INDEX 1.7 ug/dL (1.4-4.5); T4(THYROXINE) 4.9 ug/dL (4.7-13.3)
--- NOTE | 2019-06-10 23:53 | NUR ---
RT AT BEDSIDE FOR ABG BLOOD DRAW
[2019-06-11] VITALS (7 sets, daily range): BP systolic 112–153; BP diastolic 60–88; Ht 162.6 cm; Wt 57.0 kg
--- NOTE | 2019-06-11 01:20 | NUR ---
PTS' O2 SATURATION ON RA 87%. PT PLACED ON 2 L NC. PT NOW STATTING 94%. WILL CONT TO [facility].
--- NOTE | 2019-06-11 01:29 | NUR ---
REPORT GIVEN TO LINDEN FRAUSTO FOR CONTINUITY OF CARE. ALL QUESTIONS/CONCERNS ADDRESSED AT THIS TIME
--- NOTE | 2019-06-11 02:41 | NUR ---
PT IS SLEEPING, EASILY AROUSABLE. NO S/S OF ACUTE DISTRESS NOTED. BED IN LOW POSITION. CALL LIGHT IN REACH. WILL CONT TO MONITOR
[2019-06-11 03:50] LABS: MAGNESIUM 2.5 mg/dL (1.8-2.4); PHOSPHOROUS 6.8 mg/dL (2.5-4.9)
--- NOTE | 2019-06-11 04:13 | NUR ---
RECEIVED PT FROM ED, C/O MILD BACK PAIN 01/07, PREVIOUS MEDICATED IN ER. ORIENTED PT TO ROOM. DRY SCAB TO RFA, FUNCTIONAL ARCHITECT, PHOTOS DOCUMENTED. TRICE CATH TO RIGHT CHEST WITHOUT DRESSING, NEW DRESSING APPLIED. BED IN LOWEST POSITION, SIDE RAILS UP X2, CALL LIGHT WITHIN REACH. WILL CONTINUE TO MONITOR.
[2019-06-11 04:55] LABS: BASOPHIL % 0.7 % (0-2); PLATELET COUNT 259 x10^3mcL (130-400)
[2019-06-11 04:56] LABS: RED CELL DISTRIBUTION WIDTH 15.9 % (11.5-14.5)
[2019-06-11 05:25] LABS: CALCIUM 8.8 mg/dL (8.5-10.1); CARBON DIOXIDE 15.9 mmol/L (21-32); MAGNESIUM 2.5 mg/dL (1.8-2.4); PHOSPHOROUS 7.2 mg/dL (2.5-4.9)
[2019-06-11 05:34] LABS: CREATININE SERUM 4.7 mg/dL (0.6-1.0)
--- NOTE | 2019-06-11 06:34 | NUR ---
PT CURRENTLY RESTING IN BED, NO ACUTE DISTRESS. ALL NEEDS MET AND ATTENDED TO. NO SIGNIFICANT CHANGES. IV PATENT AND INTACT. BED IN LOWEST POSITION, SIDE RAILS UP X2, CALL LIGHT WITHIN REACH. WILL ENDORSE CARE TO ONCOMING NURSE.
--- NOTE | 2019-06-11 07:30 | NUR ---
AAO TIMES 4. TELE # 18 SR. IV SITE RUE CDI, PATENT. RIGHT CHEST WALL TRICE CATH WITH SITE CDI. LUE WITH AV SHUNT NOT READY TO BE USED YET PER PATIENT. NO C/O PAIN. NO SOB. COOPERATIVE.
[2019-06-11] MEDS ORDERED: RENVELA800 M1 PO (12:52)
[2019-06-11] MEDS ORDERED: NOR5 PO (12:53)
[2019-06-11] MEDS ORDERED: LIPI10 PO (12:53)
--- NOTE | 2019-06-11 16:00 | NUR ---
ECHO COMPLETED. DR. DANIELSON NOTIFIED ABOUT FINDINGS. REQUESTED CARDIAC CONSULT FOR NEW ONSET OF CHF.
--- NOTE | 2019-06-11 17:59 | NUR ---
AAO TIMES 4. TELE # 18 SR. IV SITE RUE CDI, PATENT. COOPERATIVE. NO C/O PAIN. RIGHT CHEST WALL TRICE CATH SITE CDI. AV SHUNT TO LUE, NOT IN USE, STILL WAITING FOR IT TO BE READY TO BE USED.
--- NOTE | 2019-06-11 19:45 | NUR ---
SHIFT REASSESSMENT DONE.PATIENT ALERT AND ORIENTED.O2 AT 3 LITERS N/C.SOB ON ADMIT.MILD GEN WEAKNESS.FALL PRECAUTION.PHYSICAL THERAPY.HEPLOCK JANEE.TELE 18 SR.RFA DRY SCAB NOTED,JENNIFER.LUE AV SHUNT NOT IN USE YET.R CHEST TRICE CATH HD ACCESS FOR NOW,HAD HD TODAY 2.5 LITERS OUT.HEPLOCK INTACT.CALL LIGHT IN REACH.
--- NOTE | 2019-06-11 20:55 | NUR ---
PATIENT HHN TX SCHEDULED,NO SOB AT THIS TIME,HAD HD TODAY 2.5 LITERS OUT.R CHEST TRICE CATH INTACT.
--- NOTE | 2019-06-12 02:00 | NUR ---
SLEEPING WELL DURING THE NIGHT.
[2019-06-12 04:53] LABS: UA SPECIFIC GRAVITY 1.015 (1.005-1.035); microscopic required? YES; urine erythrocyte 1+ (NEGATIVE)
[2019-06-12 05:05] LABS: AMPHETAMINE QUAL UR NONE DETECTED (See below)
--- NOTE | 2019-06-12 05:44 | NUR ---
I AND O MEASURED.PATIENT DID STILL URINATE LAST NIGHT,SCANTY.UA UDS SENT TO LAB.HEPLOCK INTACT.WILL ENDORSE TO NEXT SHIFT.
[2019-06-12 06:04] VITALS: BP 140/88
[2019-06-12 06:25] LABS: BASOPHIL % 0.6 % (0-2); PLATELET COUNT 221 x10^3mcL (130-400)
[2019-06-12 06:44] LABS: CALCIUM 8.6 mg/dL (8.5-10.1); CREATININE SERUM 3.6 mg/dL (0.6-1.0); PHOSPHOROUS 5.4 mg/dL (2.5-4.9); POTASSIUM SERUM 3.8 mmol/L (3.5-5.1)
[2019-06-12 06:50] LABS: RED CELL DISTRIBUTION WIDTH 16.3 % (11.5-14.5)
--- NOTE | 2019-06-12 08:08 | NUR ---
AAO TIMES 4. TELE # 18 SR. LUNGS CTA. NO SOB. O2 SAT ON RA 94%. BS'S ACTIVE TIMES 4. TENORIO STRONG. RIGHT CHEST WALL WITH TRICE CATH. LUE WITH AV SHUNT, NOT BEING USED YET. IV SITE RUE PATENT, CDI. PERIPHERAL PUSLES PALPABLE. NO EDEMA. COOPERATIVE.
[2019-06-12 08:15] VITALS: BP 154/90
--- NOTE | 2019-06-12 09:22 | NUR ---
RECEIVED ORDERS FOR US GUIDED THORACENTESIS FOR DIAGNOSTIC SPECIMEN. PROCEDURE EXPLAINED BY BRADLEY WEI DONE. FLUID AMOUNT DECREASED. PATIENT DECLINES PROCEDURE. PATIENT'S NURSE PRECIOUS SKINNER.
--- NOTE | 2019-06-12 11:57 | NUR ---
Initial Nutrition Assessment: 257T/B SADIQ PABLO IA HR Dx: SOB, renal failure PMHx: ESRD, COPD, Emphysema, Lupus, Hypertension PSHx: None Labs: BUN 33H, CREAT 3.6H, P 5.4H, HGB 9.9L Meds: Colace, Lasix, Lipitor, phoslo, zofran Diet: Renal PO Intake: (06/12) breakfast 85%, (06/11) breakfast 30%, lunch, dinner 50% Ht: 162.56 cm (64") Wt: 57 kg (125#) BMI: 21.6 kg/m2 Bed scale: 124.5# IBW: 120# (55 kg) %IBW: 104 UBW: 125# Age: 63/F Food Allergies: NKFA Skin: RFA scab Jaxon: 20 Edema: none GI: Last BM: 06/11 Per H&P, Pt is a 63 yoF with a PMH of ESRD (HD: Tuesday and Tuesday) who presents with gradual onset, constant, worsening mild shortness of breath for 1 day. RDN Visit (06/12): Patient was alert and oriented but appeared very sad. Patient said that he appetite is good and she is able to finish all of her breakfast this morning. FNS received consult for 'malnutrition' on 06/11. Problem with: N/V/D/C: no Problems with: Chewing/Swallowing: none Current appetite: good Recent wt change: none %wt change: n/a Vitamin/Supplement use: none Special diet at home: regular Physical activity: none Nutrition education given: Importance of eating nutrient dense foods d/t dialysis was emphasized. Patient is willing to consume ONS Nepro. Food-drug interactions: lipitor- avoid grapefruit Education given: no Estimated Nutritional Needs Based on actual body weight 57 kg Energy: 6842-5171 kcal/d (30-35 kcal/kg)- HD Protein: 68-80 g/d (1.2-1.4 g/kg) - HD Fluid: 7316-9883 ml/d (1 ml/kcal) or per doctor Nutrition Diagnosis 1. Impaired nutrient utilization related to renal dysfunction as evidenced by BUN 33, CREAT 3.6 Intervention 1. Recommend continuing Renal diet w/ Nepro BID. Discussed recommendations with SULEMAN Watson. Monitor/Evaluate Goal: PO intake at least 75% of estimated needs Monitor: PO intake, Labs, GI function F/U in 3-5 days as moderate risk 06/15-
--- NOTE | 2019-06-12 11:58 | NUR ---
1. Recommend continuing Renal diet w/ Nepro BID. Discussed recommendations with SULEMAN Watson.
[2019-06-12 12:22] VITALS: BP 125/79
[2019-06-12 17:01] VITALS: BP 147/72
--- NOTE | 2019-06-12 18:32 | NUR ---
AAO TIMES 4. TELE # 18 SR. VS'S STABLE. NO SOB. NO C/O PAIN. IV SITE RIGHT FOOT CDI. COOPERATIVE AT THIS TIME, SHE DID REFUSE THE ULTRA SOUND GUIDED THORACENTESIS THIS AM, SHE SAID SHE DIDNT WANT TO BE POKED, I DID EDUCATION AND THE RADIOLOGY NURSE AND THE RADIOLOGIST BUT SHE STILL REFUSED. GOOD APPETITE.
--- NOTE | 2019-06-12 19:19 | NUR ---
SHIFT REASSESSMENT DONE.PATIENT ALERT AND ORIENTED.MAKE NEEDS KNOWN.FAMILY AT BEDSIDE,VISITING,IV PAMELA R FOOT.TKO.WILL HEPLOCK LATER.LUE AV SHUNT NOT IN USE YET.TELE 18 SR.CALL LIGHT IN REACH.R CHEST TRICE CATH HD ACCESS FOR NOW.
[2019-06-12 20:22] VITALS: BP 144/81
--- NOTE | 2019-06-12 20:39 | NUR ---
ALL PM MEDS GIVEN,ALSO NEED NORCO/PAIN AND GIVEN,SWALLOWS WELL.
--- NOTE | 2019-06-12 20:40 | NUR ---
HHN TX ALSO BEFORE PM MEDS AND TOLERATING WELL.
--- NOTE | 2019-06-13 01:03 | NUR ---
BEN Barreto FOOT,REMINDED TO BE CAREFUL WITH IT,VERY HARD STICK.
--- NOTE | 2019-06-13 04:00 | NUR ---
SLEEPING WELL AT NOC.NO DISTRESS.
[2019-06-13 06:05] VITALS: BP 140/78
--- NOTE | 2019-06-13 06:40 | NUR ---
PATIENT AWAKE AT THIS TIME,WATCHING TV.NO RESP DISTRESS.
[2019-06-13 06:45] LABS: BASOPHIL % 0.9 % (0-2); PLATELET COUNT 237 x10^3mcL (130-400)
[2019-06-13 06:48] LABS: RED CELL DISTRIBUTION WIDTH 15.7 % (11.5-14.5)
[2019-06-13 06:49] LABS: CALCIUM 9.4 mg/dL (8.5-10.1); CARBON DIOXIDE 25.4 mmol/L (21-32); POTASSIUM SERUM 3.3 mmol/L (3.5-5.1)
--- NOTE | 2019-06-13 07:05 | NUR ---
RECIEVED PT FROM SLOT ATTENDANT NURSE. PT RESTING IN BED, AOX4, RESP E/U ON RA. DENIES SOB AT THIS TIME, NO ACUTE DISTRESS NOTED. ON TELE 18 SHOWING NSR, HR: 89. SALINE LOCKED TO R FOOT W/ NO ERYTHEMA OR EDEMA. TRICE CATH IN PLACE TO R CHEST CDI. BED IN LOWEST POSITION AND CALL LIGHT WITHIN REACH. WILL CONTINUE TO MONITOR.
[2019-06-13 09:28] VITALS: BP 159/86
[2019-06-13] MEDS ORDERED: PHOS PO (12:29)
[2019-06-13] MEDS ORDERED: CARVEDILOL3.125 M1 PO (12:30)
[2019-06-13] MEDS ORDERED: LIPITOR40 MG PO (12:38)
--- NOTE | 2019-06-13 12:44 | NUR ---
PT IN BED HAVING LUNCH, AOX4, RESP E/U ON RA. C/O OF BACK PAIN RATED 8/10, MEDICATED ORDERED PER EMAR. DIALYSIS STARTED AT THIS TIME. BED IN LOWEST POSITION AND CALL LIGHT WITHIN REACH. WILL CONTINUE TO MONIITOR.
== END 2019-06-13 16:26 | disposition home or self-care (01) | DRG 194 ==
LOC: ED 21:36 → DU 06-11 00:54
PROVIDERS: Neuromusculoskeletal Medicine, Sports Medicine; Specialist; ADMIT Internal Medicine
DX: I13.2 Hypertensive heart and chronic kidney disease with heart failure and with stage 5 chronic kidney disease, or end stage renal disease (principal); J96.01 Acute respiratory failure with hypoxia; M32.9 Systemic lupus erythematosus, unspecified; J90 Pleural effusion, not elsewhere classified; E44.0 Moderate protein-calorie malnutrition; I42.9 Cardiomyopathy, unspecified; E83.39 Other disorders of phosphorus metabolism; N18.6 End stage renal disease; E83.41 Hypermagnesemia; I50.23 Acute on chronic systolic (congestive) heart failure; J44.1 Chronic obstructive pulmonary disease with (acute) exacerbation; I16.0 Hypertensive urgency; D63.1 Anemia in chronic kidney disease; M54.5 Low back pain; E03.9 Hypothyroidism, unspecified; E78.00 Pure hypercholesterolemia, unspecified; D53.9 Nutritional anemia, unspecified; K21.9 Gastro-esophageal reflux disease without esophagitis; F17.210 Nicotine dependence, cigarettes, uncomplicated; F11.10 Opioid abuse, uncomplicated; Z99.2 Dependence on renal dialysis; Z68.21 Body mass index [BMI] 21.0-21.9, adult; Z91.15 Patient's noncompliance with renal dialysis
CPT/HCPCS: 32555; 36600; 83880; 84439; 94150; 97116-GP; G0378; J0456; J0696; J1940; J2270; J2405; J3490; J7030; J7040; J7620; Q0092

== ENCOUNTER 2019-06-21 19:26 | Inpatient (IN) | payer MEDICAID ==
[~2019-06-21] VITALS: Ht 162.6 cm; Wt 51.7 kg
[~2019-06-21 19:26] MED LIST changes: +CARVEDILOL3.125 M1 PO; +LIPITOR40 MG PO; +NOR5 PO; +PHOS PO; +RENVELA800 M1 PO
[2019-06-21 19:37] VITALS: Ht 162.6 cm; Wt 51.7 kg
--- NOTE | 2019-06-21 20:08 | NUR ---
PATIENT SEEN WITH COMPLAINT OF SHORTNESS OF BREATH X 3 DAYS. RECPORT SHE WAS NOT ABLE TO COMPLETE DIALYSIS TODAY DUE TO THE SOB AND WEAKNESS. PATIENT SEEN WITH BOUTS OF COUGHING , NON PRODICTIVE, H/O COPD. MD AT THE BEDSIDE. PATIENT WAS PUT ON THE MONITOR, NSR ON THE CARDIAC SCOPE. 1.5 LITERS OXYGEN GIVEN , SATURATION IS 93%
[2019-06-21 21:05] LABS: BASOPHIL % 0.1 % (0-2); PLATELET COUNT 206 x10^3mcL (130-400); RED CELL DISTRIBUTION WIDTH 14.5 % (11.5-14.5)
--- NOTE | 2019-06-21 21:11 | NUR ---
RESPIRATORY AT THE BEDSIDE, BREATHING TREATMENT COMPLETED. PATIENT IS COUGHING CONSTANTLY.
[2019-06-21 21:17] LABS: CALCIUM 8.9 mg/dL (8.5-10.1); CARBON DIOXIDE 22.9 mmol/L (21-32); CREATININE SERUM 2.9 mg/dL (0.6-1.0); POTASSIUM SERUM 4.7 mmol/L (3.5-5.1)
[2019-06-21 21:21] LABS: BILIRUBIN TOTAL 0.5 mg/dL (0.20-1.00); PHOSPHOROUS 3.8 mg/dL (2.5-4.9); TOTAL PROTEIN, SERUM 6.4 g/dL (6.4-8.2)
[2019-06-21 21:24] LABS: ALBUMIN 2.9 g/dL (3.4-5.0)
--- NOTE | 2019-06-21 21:52 | NUR ---
ATTEMPT TO INSERT SALINE LOCK WAS UNSUCCESSFUL. RN HELP REQUESTED. RESPIRATORY AT THE BEDSIDE BREATHING TREATMENT GIVEN.
--- NOTE | 2019-06-21 23:24 | NUR ---
PATIENT IS RESTING, NO ACUTE DISTRESS.
--- NOTE | 2019-06-21 23:48 | NUR ---
REPORT WAS GIVEN TO JOSHUA. PATIENT TRANSPORTED TO ROOM 219 A.
[2019-06-22] VITALS (7 sets, daily range): BP systolic 120–149; BP diastolic 72–83
--- NOTE | 2019-06-22 00:08 | NUR ---
RECEIVED PT VIA [employer] FROM E/D, ACCOMPANIED BY RN AND TRANSPORTER. PT A/A/O X 4, CALM, COOPERATIVE. AMBULATORY, NO GAIT OR BALANCE IMPAIRMENT NOTED WHEN WALKING FROM [facility] TO BED; ASSISTED FALL ON HER BUTTOCKS 06/21/19, NO BRUISING, SKIN INTACT, C/O CONSTANT DULL BACK PAIN 07/10 2/2 COUGHING AND FALL, RELIEVED BY REST AND PAIN MEDICATIONS. ON TELE # 20, HR 92, NSR, DENIES CHEST PAIN OR DISCOMFORT AT THIS TIME. LUNGS CONGESTED BILATERALLY, CHEST RISING EVENLY, 2LNC, 93%, NON-PRODUCTIVE COUGH. ABD SOFT, DISTENDED, NORMOACTIVE BOWEL SOUNDS X 4 QUADS, LAST BM 06/19/19, FORMED; WEARS DENTURES (NOT W/ PT). VOIDS FREELY, HAS R UPPER CHEST WALL TRICE CATH, CDI; DIALYSIS MF; HAD INCOMPLETE DIALYSIS 06/21/19. IV SITE RW 22G, CDI. ORIENTED PT TO ROOM, BED CONTROLS, CALL LIGHT SYSTEM. SIDE RAILS UP X 2, BED IN LOW POSITION. WILL ENDORSE TO JETT ALBARRAN.
[2019-06-22 01:00] LABS: microscopic required? YES; urine erythrocyte TRACE (NEGATIVE)
--- NOTE | 2019-06-22 01:33 | NUR ---
AWAKE C/O BACKPAIN, NORCO 1 TAB PO GIVEN PRESCRIBED. WILL CONTINUE TO MONITOR.
[2019-06-22 01:50] LABS: AMPHETAMINE QUAL UR NONE DETECTED (See below)
--- NOTE | 2019-06-22 02:42 | NUR ---
PATIENT APPEARS TO BE SLEEPING AT THIS TIME AFTER PAIN MEDS WAS GIVEN.
--- NOTE | 2019-06-22 05:17 | NUR ---
SLEPT AT LONG INTERVALS. C/O BACKPAIN X1 THE ENTIRE SHIFT AND MEDICATED PREXCRIBED. ALL NEEDS ATTENDED.
[2019-06-22 06:44] LABS: BASOPHIL % 0.3 % (0-2); PLATELET COUNT 211 x10^3mcL (130-400); RED CELL DISTRIBUTION WIDTH 14.4 % (11.5-14.5)
[2019-06-22 07:17] LABS: CALCIUM 9.2 mg/dL (8.5-10.1); CARBON DIOXIDE 25.8 mmol/L (21-32); CREATININE SERUM 3.7 mg/dL (0.6-1.0); MAGNESIUM 2.6 mg/dL (1.8-2.4); PHOSPHOROUS 5.5 mg/dL (2.5-4.9); POTASSIUM SERUM 4.2 mmol/L (3.5-5.1)
--- NOTE | 2019-06-22 07:30 | NUR ---
RECEIVED PT FROM JIGGER MACHINE OPERATOR RN. Ramon/JOSE. TELE#20. DENIES CHEST PAIN/PRESSURE. RESPIRATIONS EQUAL AND UNLABORED ON RA. DENIES SOB AT THIS TIME. PT DENIES ANY N/V. RIGHT UPPER CHEST TRICE CATHETER IN PLACE, DRESSING CDI. JANEE FISTULA IN PLACE, BRUIT AND THRILL NOTED. IV TO RW SALINE LOCKED, NO REDNESS OR SWELLING NOTED. PT C/O TENDERNESS TO BACK. GIVEN PILLOW FOR BACK. PT ABLE TO REPOSITION SELF. IV SALINE LOCKED TO RW. NO REDNESS OR SWELLING NOTED. WILL CONTINUE TO MONITOR. CALL LIGHT IN REACH. BED IN LOWEST POSITION.
--- NOTE | 2019-06-22 13:24 | NUR ---
PT SITTING UP IN BED. NO ACUTE RESP DISTRESS NOTED ON RA. DENIES SOB AT THIS TIME. IV TO RW FLUSHED WELL. IV ANTIBIOTICS INFUSING ORDERED. GIVEN PO MEDS. TOLERATED WELL. NICODERM PATCH APPLIED TO FAZAL. WILL CONTINUE TO MONITOR. CALL LIGHT IN REACH. BED IN LOWEST POSITION.
--- NOTE | 2019-06-22 15:25 | NUR ---
PT SITTING UP IN BED. NO ACUTE RESP DISTRESS NOTED ON RA. PT C/O PAIN TO MID BACK 06/09 TENDERNESS. MEDICATED PER EMAR. WILL CONTINUE TO MONITOR. CALL LIGHT IN REACH. BED IN LOWEST POSITION.
--- NOTE | 2019-06-22 17:45 | NUR ---
PT SITTING UP IN BED. EATING DINNER. NO ACUTE RESP DISTRESS NOTED ON RA. PT STILL C/O BACK PAIN TO MID BACK. PT STATES "THE PAIN MEDICATIONS HELP FOR A LITTLE AND THE PAIN IS BACK. PT STATES SHE DID TELL THE DOCTOR THIS AM DURING ROUNDS SHE FELL. GIVEN PO MEDS. TOLERATED WELL. PAGED DR. MCINTOSH REGARDING PT BACK PAIN. AWAITING FOR CALL BACK. WILL CONTINUE TO MONITOR. CALL LIGHT IN REACH. BED IN LOWEST POSITION.
--- NOTE | 2019-06-22 19:20 | NUR ---
RECEIVED PT IN BED COMFORTABLY RESTING. NO SOB NOTED. DENIES ANY PAIN AT THIS TIME. SALINE LOCK TO RFA. TRICE CATH FOR HD ACCESS.BED IN LOWEST POSITION,CALL LIGHT JOHANNY YOUNG. WILL CONTINUE TO MONITOR.
--- NOTE | 2019-06-22 22:29 | NUR ---
PT C/O BACK PAIN 06/09. MEDICATED NORCO 7.5/325MG PO ORDERED. WILL CONTINUE TO MONITOR.
--- NOTE | 2019-06-23 05:36 | NUR ---
PT REMAINED ASLEEP. NO SOB NOTED. NO C/O PAIN AT THISN TIME. BED IN LOWEST POSITION,CALL LIGHT WITHIN REACH. WILL CONTINUE TO MONITOR.
[2019-06-23 05:54] VITALS: BP 132/77
[2019-06-23 07:02] LABS: PLATELET COUNT 219 x10^3mcL (130-400)
[2019-06-23 07:05] LABS: CALCIUM 9.4 mg/dL (8.5-10.1); CARBON DIOXIDE 25.3 mmol/L (21-32); POTASSIUM SERUM 4.3 mmol/L (3.5-5.1)
[2019-06-23 07:17] LABS: CREATININE SERUM 4.4 mg/dL (0.6-1.0)
--- NOTE | 2019-06-23 07:23 | NUR ---
CARE ENDORSED TO DAY NURSE ABBY.
[2019-06-23 07:30] LABS: BASOPHIL % 0 % (0-2)
[2019-06-23 08:07] VITALS: BP 125/84
--- NOTE | 2019-06-23 08:11 | NUR ---
RECEIVED PATIENT FROM JETT JOSE. PATIENT IN BED EATING BREAKFAST TRAY. NO COMPLAINTS AT THIS TIME. SPOKE WITH PATIENT ABOUT PLAN OF CARE AND HD TREATMENT TODAY. PATIENT AGREES, HOWEVER REQUESTED MEDICATION FOR ANXIETY POST HD TREATMENT. WILL INFORM RAILWAY SWITCH OPERATOR FOR PRN ANXIETY MEDICATION. CALL LIGHT IN REACH AT THIS TIME.
--- NOTE | 2019-06-23 08:45 | NUR ---
STRUCTURAL SHOP HELPER BRANNON IN TO SPEAK WITH PATIENT ABOUT PLAN OF CARE. LIKELY TO BE DISCHARGED AFTER CLEARED FROM CONSULTS. STRUCTURAL SHOP HELPER STATES SHE WILL ORDER PRN FOR ANXIETY. CALL LIGHT IN REACH.
--- NOTE | 2019-06-23 10:41 | NUR ---
PATIENT HD TREATMENT BEGUN, CONSENT SIGNED. SULEMAN SOUTH MADE AWARE AND PRN XANAX PO WILL BE GIVEN ONCE VERIFIED BY PHARMACY. SULEMAN SOUTH NOTED SHE SPOKE W DR CAMPOS ABOUT DISCHARGE, STATED SHE IS LIKELY TO GO HOME TODAY. CALL LIGHT IN REACH, WILL NOTIFIED PATIENT ONCE HD TREATMENT COMPLETE ALONG WITH DISCHARGE ORDERS. HD NURSE AT BEDSIDE AT THIS TIME, CALL LIGHT IN REACH.
[2019-06-23] MEDS ORDERED: PREDNISONE20 MG PO (11:05)
[2019-06-23] MEDS ORDERED: XANAX0.25 MG PO (11:05)
[2019-06-23] MEDS ORDERED: ZITHROMAX Z-PA250 MG PO (11:05)
[2019-06-23 12:44] VITALS: BP 130/85
[2019-06-23 13:36] VITALS: BP 130/85
--- NOTE | 2019-06-23 15:06 | NUR ---
DISCHARGE INSTRUCTIONS AND PRESCRIPTIONS GIVEN AND EXPLAINED TO PATIENT. ALL QUESTIONS ANSWERED. PATIENT AWARE TO FU WITH PCP AND NEPROLOGIST. IV CATHETER REMOVED AND INTACT, [facility] TECHNICIAN RETURNED TO [facility]. PATIENT AWAITING RIDE FROM FAMILY AND WILL ESCORT PATIENT DOWNSTAIRS ONCE FAMILY ARRIVES. CALL LIGHT IN REACH.
--- NOTE | 2019-06-23 15:42 | NUR ---
PATIENT FAMILY NOW IN ROOM. PATIENT WITH FAMILY AND BELONGINGS ESCORTED DOWNSTAIRS VIA WHEELCHAIR ACCOMPANIED BY AKIRA MCCARTHY.
== END 2019-06-23 15:32 | disposition home or self-care (01) | DRG 140 ==
LOC: ED 19:26 → DU 22:53
PROVIDERS: Emergency Medicine; ADMIT General Practice
DX: J44.1 Chronic obstructive pulmonary disease with (acute) exacerbation (principal); I13.2 Hypertensive heart and chronic kidney disease with heart failure and with stage 5 chronic kidney disease, or end stage renal disease; M32.9 Systemic lupus erythematosus, unspecified; N18.6 End stage renal disease; I42.9 Cardiomyopathy, unspecified; E44.0 Moderate protein-calorie malnutrition; I50.22 Chronic systolic (congestive) heart failure; R09.02 Hypoxemia; E78.5 Hyperlipidemia, unspecified; D53.9 Nutritional anemia, unspecified; D63.1 Anemia in chronic kidney disease; F11.10 Opioid abuse, uncomplicated; F17.218 Nicotine dependence, cigarettes, with other nicotine-induced disorders; Z99.2 Dependence on renal dialysis; Z68.1 Body mass index [BMI] 19.9 or less, adult; Z91.15 Patient's noncompliance with renal dialysis
CPT/HCPCS: 36600; 94150; 99406; G0378; J1644; J1956; J2920; J2930; J7030; J7040; J7613; J7620; J7644; Q0092

== ENCOUNTER 2019-07-23 19:16 | Inpatient (IN) | payer MEDICAID ==
[~2019-07-23] VITALS: Ht 162.6 cm; Wt 51.2 kg
[~2019-07-23 19:16] MED LIST changes: +PREDNISONE20 MG PO; +XANAX0.25 MG PO; +ZITHROMAX Z-PA250 MG PO
[2019-07-23 19:21] VITALS: Ht 162.6 cm; Wt 51.2 kg
[2019-07-23 21:24] LABS: BASOPHIL % 0.6 % (0-2); PLATELET COUNT 211 x10^3mcL (130-400); RED CELL DISTRIBUTION WIDTH 13.6 % (11.5-14.5)
[2019-07-23 21:45] LABS: BILIRUBIN TOTAL 0.42 mg/dL (0.20-1.00); CALCIUM 10.9 mg/dL (8.5-10.1); CARBON DIOXIDE 21.9 mmol/L (21-32); POTASSIUM SERUM 4.1 mmol/L (3.5-5.1); TOTAL PROTEIN, SERUM 6.3 g/dL (6.4-8.2)
[2019-07-23 21:57] LABS: ALBUMIN 2.8 g/dL (3.4-5.0)
[2019-07-23 21:59] LABS: CREATININE SERUM 5.3 mg/dL (0.6-1.0)
[2019-07-23 23:51] VITALS: BP 106/105
[2019-07-24] VITALS (7 sets, daily range): BP systolic 106–173; BP diastolic 80–106
[2019-07-24 10:37] LABS: BASOPHIL % 0.4 % (0-2); PLATELET COUNT 212 x10^3mcL (130-400); RED CELL DISTRIBUTION WIDTH 13.8 % (11.5-14.5)
[2019-07-24 11:02] LABS: CALCIUM 10.8 mg/dL (8.5-10.1); CARBON DIOXIDE 24.4 mmol/L (21-32); MAGNESIUM 2.9 mg/dL (1.8-2.4); PHOSPHOROUS 4.9 mg/dL (2.5-4.9); POTASSIUM SERUM 4.4 mmol/L (3.5-5.1)
[2019-07-24 11:25] LABS: CREATININE SERUM 5.6 mg/dL (0.6-1.0)
[2019-07-25 05:50] VITALS: BP 135/88
[2019-07-25 06:23] LABS: BASOPHIL % 0.4 % (0-2); PLATELET COUNT 231 x10^3mcL (130-400); RED CELL DISTRIBUTION WIDTH 13.8 % (11.5-14.5)
[2019-07-25 06:33] LABS: CALCIUM 9.4 mg/dL (8.5-10.1); CARBON DIOXIDE 29.4 mmol/L (21-32); CREATININE SERUM 3.4 mg/dL (0.6-1.0); PHOSPHOROUS 4.3 mg/dL (2.5-4.9); POTASSIUM SERUM 3.2 mmol/L (3.5-5.1)
[2019-07-25 08:06] VITALS: BP 147/96
[2019-07-25] MEDS ORDERED: LISINOPRIL10 MG PO (08:22)
[2019-07-25] MEDS ORDERED: ASPIR 8181 MG PO (08:24)
[2019-07-25 11:45] VITALS: BP 147/96
[2019-07-25 11:56] VITALS: BP 139/91
[2019-07-26 14:06] LABS: CALCIUM IONIZED 5.3 mg/dL (4.5-5.6)
== END 2019-07-25 13:52 | disposition home or self-care (01) | DRG 194 ==
LOC: ED 19:16 → DU 22:35
PROVIDERS: Emergency Medicine; Internal Medicine Nephrology; ADMIT Internal Medicine
DX: I13.2 Hypertensive heart and chronic kidney disease with heart failure and with stage 5 chronic kidney disease, or end stage renal disease (principal); E11.22 Type 2 diabetes mellitus with diabetic chronic kidney disease; M32.9 Systemic lupus erythematosus, unspecified; E44.0 Moderate protein-calorie malnutrition; J44.1 Chronic obstructive pulmonary disease with (acute) exacerbation; E83.52 Hypercalcemia; N18.6 End stage renal disease; I50.21 Acute systolic (congestive) heart failure; D63.1 Anemia in chronic kidney disease; E78.5 Hyperlipidemia, unspecified; Z99.2 Dependence on renal dialysis; Z68.22 Body mass index [BMI] 22.0-22.9, adult; Z91.15 Patient's noncompliance with renal dialysis; Z79.84 Long term (current) use of oral hypoglycemic drugs; F17.210 Nicotine dependence, cigarettes, uncomplicated
CPT/HCPCS: 83880; 94150; G0378; J1644; J1940; J2920; J7030; J7620; J7626; Q0092

== ENCOUNTER 2019-08-14 16:34 | Emergency (ER) | payer MEDICAID ==
[~2019-08-14] VITALS: Ht 162.6 cm; Wt 50.3 kg
[~2019-08-14 16:34] MED LIST changes: +ASPIR 8181 MG PO; +LISINOPRIL10 MG PO
[2019-08-14 16:38] VITALS: BP 140/86; Ht 162.6 cm; Wt 50.3 kg
[2019-08-14 17:17] LABS: BASOPHIL % 0.8 % (0-2); PLATELET COUNT 178 x10^3mcL (130-400); RED CELL DISTRIBUTION WIDTH 13.5 % (11.5-14.5)
[2019-08-14 17:30] LABS: BILIRUBIN TOTAL 0.3 mg/dL (0.20-1.00); CALCIUM 10.8 mg/dL (8.5-10.1); CARBON DIOXIDE 23.5 mmol/L (21-32); POTASSIUM SERUM 4.6 mmol/L (3.5-5.1); TOTAL PROTEIN, SERUM 6.3 g/dL (6.4-8.2)
[2019-08-14 17:31] LABS: ALBUMIN 2.9 g/dL (3.4-5.0)
[2019-08-14 17:33] LABS: CREATININE SERUM 6.2 mg/dL (0.6-1.0)
== END 2019-08-14 17:54 | disposition home or self-care (01) ==
LOC: ED 16:34
PROVIDERS: Emergency Medicine
DX: J44.1 Chronic obstructive pulmonary disease with (acute) exacerbation (principal); I12.9 Hypertensive chronic kidney disease with stage 1 through stage 4 chronic kidney disease, or unspecified chronic kidney disease; N18.9 Chronic kidney disease, unspecified; Z99.2 Dependence on renal dialysis
CPT/HCPCS: 36415; 83880; Q0092

== ENCOUNTER 2019-09-16 18:28 | Emergency (ER) | payer MEDICAID ==
[~2019-09-16] VITALS: Ht 162.6 cm; Wt 51.3 kg
[2019-09-16 18:39] VITALS: Ht 162.6 cm; Wt 51.3 kg
[2019-09-16 21:06] LABS: microscopic required? YES; urine erythrocyte 1+ (NEGATIVE)
[2019-09-16 21:20] LABS: BASOPHIL % 1.5 % (0-2); PLATELET COUNT 250 x10^3mcL (130-400)
[2019-09-16 21:31] LABS: RED CELL DISTRIBUTION WIDTH 14.8 % (11.5-14.5)
[2019-09-16 21:46] LABS: BILIRUBIN TOTAL 0.31 mg/dL (0.20-1.00); CALCIUM 10.3 mg/dL (8.5-10.1); CARBON DIOXIDE 19.5 mmol/L (21-32); PHOSPHOROUS 7.1 mg/dL (2.5-4.9); POTASSIUM SERUM 4.8 mmol/L (3.5-5.1); TOTAL PROTEIN, SERUM 6.7 g/dL (6.4-8.2)
[2019-09-16 21:48] LABS: ALBUMIN 2.9 g/dL (3.4-5.0)
[2019-09-16 21:49] LABS: CREATININE SERUM 5.5 mg/dL (0.6-1.0)
[2019-09-16 23:06] VITALS: BP 163/110
== END 2019-09-16 23:06 | disposition home or self-care (01) ==
LOC: ED 18:28
PROVIDERS: Emergency Medicine
DX: E83.39 Other disorders of phosphorus metabolism (principal); I12.0 Hypertensive chronic kidney disease with stage 5 chronic kidney disease or end stage renal disease; N18.6 End stage renal disease; J44.9 Chronic obstructive pulmonary disease, unspecified; F17.210 Nicotine dependence, cigarettes, uncomplicated; K21.9 Gastro-esophageal reflux disease without esophagitis; Z99.2 Dependence on renal dialysis; Z98.51 Tubal ligation status
CPT/HCPCS: 36415

== ENCOUNTER 2019-10-11 15:24 | Emergency (ER) | payer MEDICAID ==
[~2019-10-11] VITALS: Ht 162.6 cm; Wt 50.3 kg
[2019-10-11 15:30] VITALS: Ht 162.6 cm; Wt 50.3 kg
[2019-10-11 16:22] LABS: PLATELET COUNT 192 x10^3mcL (130-400)
[2019-10-11 16:32] LABS: RED CELL DISTRIBUTION WIDTH 15.7 % (11.5-14.5)
[2019-10-11 16:37] LABS: BILIRUBIN TOTAL 0.4 mg/dL (0.20-1.00); CALCIUM 9.8 mg/dL (8.5-10.1); CARBON DIOXIDE 23.6 mmol/L (21-32); PHOSPHOROUS 6.7 mg/dL (2.5-4.9); POTASSIUM SERUM 5.1 mmol/L (3.5-5.1); TOTAL PROTEIN, SERUM 6.3 g/dL (6.4-8.2)
[2019-10-11 16:44] LABS: CREATININE SERUM 5.2 mg/dL (0.6-1.0)
[2019-10-11 17:49] VITALS: BP 153/102
== END 2019-10-11 17:49 | disposition home or self-care (01) ==
LOC: ED 15:24
PROVIDERS: Emergency Medicine
DX: I12.0 Hypertensive chronic kidney disease with stage 5 chronic kidney disease or end stage renal disease (principal); N18.6 End stage renal disease; R53.1 Weakness; J44.9 Chronic obstructive pulmonary disease, unspecified; K21.9 Gastro-esophageal reflux disease without esophagitis; F11.10 Opioid abuse, uncomplicated; Z99.2 Dependence on renal dialysis; Z98.51 Tubal ligation status
CPT/HCPCS: 36415

== ENCOUNTER 2019-10-29 15:02 | Emergency (ER) | payer MEDICAID ==
[~2019-10-29] VITALS: Ht 162.6 cm; Wt 49.9 kg
[2019-10-29 15:06] VITALS: Ht 162.6 cm; Wt 49.9 kg
[2019-10-29 18:53] LABS: BASOPHIL % 0.7 % (0-2); PLATELET COUNT 184 x10^3mcL (130-400)
[2019-10-29 18:56] LABS: RED CELL DISTRIBUTION WIDTH 15.6 % (11.5-14.5)
[2019-10-29 18:59] LABS: BILIRUBIN TOTAL 0.41 mg/dL (0.20-1.00); CALCIUM 10.2 mg/dL (8.5-10.1); POTASSIUM SERUM 4.8 mmol/L (3.5-5.1); TOTAL PROTEIN, SERUM 6.6 g/dL (6.4-8.2)
[2019-10-29 19:03] LABS: ALBUMIN 3.2 g/dL (3.4-5.0); CREATININE SERUM 5.6 mg/dL (0.6-1.0)
[2019-10-29 20:58] VITALS: BP 137/89
== END 2019-10-29 20:58 | disposition home or self-care (01) ==
LOC: ED 15:02
PROVIDERS: Emergency Medicine
DX: J10.1 Influenza due to other identified influenza virus with other respiratory manifestations (principal); K21.9 Gastro-esophageal reflux disease without esophagitis; I10 Essential (primary) hypertension; J44.9 Chronic obstructive pulmonary disease, unspecified; F11.10 Opioid abuse, uncomplicated
CPT/HCPCS: 36415; 87804; J7613; Q0092

== ENCOUNTER 2019-11-09 11:19 | Emergency (ER) | payer MEDICAID ==
[~2019-11-09] VITALS: Ht 162.6 cm; Wt 49.0 kg
[2019-11-09 11:24] VITALS: Ht 162.6 cm; Wt 49.0 kg
[2019-11-09 12:22] LABS: BASOPHIL % 0.5 % (0-2); PLATELET COUNT 292 x10^3mcL (130-400)
[2019-11-09 12:28] LABS: RED CELL DISTRIBUTION WIDTH 16.2 % (11.5-14.5)
[2019-11-09 14:21] VITALS: BP 158/94
[2019-11-09 14:28] LABS: CALCIUM 9.8 mg/dL (8.5-10.1); CARBON DIOXIDE 20.9 mmol/L (21-32); POTASSIUM SERUM 4.9 mmol/L (3.5-5.1)
[2019-11-09 14:30] LABS: ALBUMIN 2.8 g/dL (3.4-5.0); CREATININE SERUM 6.3 mg/dL (0.6-1.0)
[2019-11-09 14:39] LABS: BILIRUBIN TOTAL 0.4 mg/dL (0.20-1.00); TOTAL PROTEIN, SERUM 6.3 g/dL (6.4-8.2)
== END 2019-11-09 15:17 | disposition home or self-care (01) ==
LOC: ED 11:19
PROVIDERS: Emergency Medicine
DX: R05 Cough (principal); I12.0 Hypertensive chronic kidney disease with stage 5 chronic kidney disease or end stage renal disease; N18.6 End stage renal disease; J44.9 Chronic obstructive pulmonary disease, unspecified; I10 Essential (primary) hypertension; K21.9 Gastro-esophageal reflux disease without esophagitis; F17.210 Nicotine dependence, cigarettes, uncomplicated; Z98.51 Tubal ligation status; Z99.2 Dependence on renal dialysis; Z13.89 Encounter for screening for other disorder; Z71.6 Tobacco abuse counseling
CPT/HCPCS: 36415; 99406; Q0092

== ENCOUNTER 2020-02-18 13:01 | Emergency (ER) | payer MEDICAID ==
[~2020-02-18] VITALS: Ht 162.6 cm; Wt 53.1 kg
[2020-02-18 13:09] VITALS: Ht 162.6 cm; Wt 53.1 kg
[2020-02-18 15:01] LABS: BASOPHIL % 0.5 % (0-2); PLATELET COUNT 196 x10^3mcL (130-400); RED CELL DISTRIBUTION WIDTH 14.4 % (11.5-14.5)
[2020-02-18 16:35] LABS: BILIRUBIN TOTAL 0.27 mg/dL (0.20-1.00); CARBON DIOXIDE 21.6 mmol/L (21-32); MAGNESIUM 2.5 mg/dL (1.8-2.4); POTASSIUM SERUM 4.5 mmol/L (3.5-5.1); TOTAL PROTEIN, SERUM 6.7 g/dL (6.4-8.2)
[2020-02-18 16:38] LABS: ALBUMIN 3.3 g/dL (3.4-5.0); CREATININE SERUM 5.6 mg/dL (0.6-1.0)
[2020-02-18 17:41] VITALS: BP 143/78
== END 2020-02-18 17:41 | disposition home or self-care (01) ==
LOC: ED 13:01
PROVIDERS: Emergency Medicine
DX: I12.9 Hypertensive chronic kidney disease with stage 1 through stage 4 chronic kidney disease, or unspecified chronic kidney disease (principal); N18.9 Chronic kidney disease, unspecified; E87.70 Fluid overload, unspecified; R22.1 Localized swelling, mass and lump, neck; J44.9 Chronic obstructive pulmonary disease, unspecified; K21.9 Gastro-esophageal reflux disease without esophagitis; Z99.2 Dependence on renal dialysis; Z98.51 Tubal ligation status; F11.10 Opioid abuse, uncomplicated
CPT/HCPCS: 36415; 83880

== ENCOUNTER 2020-04-07 15:17 | Emergency (ER) | payer MEDICAID ==
[~2020-04-07] VITALS: Ht 152.4 cm; Wt 51.3 kg
[2020-04-07 15:23] VITALS: Ht 152.4 cm; Wt 51.3 kg
[2020-04-07 17:32] LABS: BASOPHIL % 0.6 % (0-2); PLATELET COUNT 180 x10^3mcL (130-400); RED CELL DISTRIBUTION WIDTH 14.4 % (11.5-14.5)
[2020-04-07 17:40] LABS: BILIRUBIN TOTAL 0.27 mg/dL (0.20-1.00); CALCIUM 9.7 mg/dL (8.5-10.1); POTASSIUM SERUM 4.6 mmol/L (3.5-5.1); TOTAL PROTEIN, SERUM 6.7 g/dL (6.4-8.2)
[2020-04-07 17:47] LABS: ALBUMIN 3.1 g/dL (3.4-5.0)
[2020-04-07 17:49] LABS: CREATININE SERUM 5.2 mg/dL (0.6-1.0)
[2020-04-07 18:31] VITALS: BP 162/99
== END 2020-04-07 18:32 | disposition left against medical advice (07) ==
LOC: ED 15:17
PROVIDERS: Emergency Medicine
DX: E87.2 Acidosis (principal); M54.5 Low back pain; I12.0 Hypertensive chronic kidney disease with stage 5 chronic kidney disease or end stage renal disease; N18.6 End stage renal disease; N19 Unspecified kidney failure; J44.9 Chronic obstructive pulmonary disease, unspecified; K21.9 Gastro-esophageal reflux disease without esophagitis; Z99.2 Dependence on renal dialysis; Z98.51 Tubal ligation status
CPT/HCPCS: Q0092

== ENCOUNTER 2020-05-19 20:34 | Emergency (ER) | payer MEDICAID ==
[~2020-05-19] VITALS: Ht 162.6 cm; Wt 51.7 kg
[2020-05-19 20:43] VITALS: Ht 162.6 cm; Wt 51.7 kg
[2020-05-19 22:47] LABS: BASOPHIL % 0.5 % (0-2); PLATELET COUNT 248 x10^3mcL (130-400); RED CELL DISTRIBUTION WIDTH 14.4 % (11.5-14.5)
[2020-05-19 22:56] LABS: BILIRUBIN TOTAL 0.3 mg/dL (0.20-1.00); CALCIUM 8.7 mg/dL (8.5-10.1); CARBON DIOXIDE 20.3 mmol/L (21-32); POTASSIUM SERUM 3.9 mmol/L (3.5-5.1); TOTAL PROTEIN, SERUM 6.2 g/dL (6.4-8.2)
[2020-05-19 23:09] LABS: ALBUMIN 2.8 g/dL (3.4-5.0)
[2020-05-19 23:11] LABS: CREATININE SERUM 6.5 mg/dL (0.6-1.0)
[2020-05-19 23:56] VITALS: BP 170/101
== END 2020-05-19 23:56 | disposition home or self-care (01) ==
LOC: ED 20:34
PROVIDERS: Emergency Medicine
DX: M54.5 Low back pain (principal); I12.0 Hypertensive chronic kidney disease with stage 5 chronic kidney disease or end stage renal disease; N18.6 End stage renal disease; D64.89 Other specified anemias; Z99.2 Dependence on renal dialysis; Z98.51 Tubal ligation status
CPT/HCPCS: J1885; Q0092

== ENCOUNTER 2020-06-29 17:01 | Emergency (ER) | payer MEDICAID ==
[~2020-06-29] VITALS: Ht 162.6 cm; Wt 54.0 kg
[2020-06-29 17:06] VITALS: Ht 162.6 cm; Wt 54.0 kg
[2020-06-29 19:38] LABS: BASOPHIL % 0.4 % (0-2); PLATELET COUNT 238 x10^3mcL (130-400)
[2020-06-29 19:39] LABS: RED CELL DISTRIBUTION WIDTH 14.6 % (11.5-14.5)
[2020-06-29 20:07] LABS: BILIRUBIN TOTAL 0.3 mg/dL (0.20-1.00); CARBON DIOXIDE 19.5 mmol/L (21-32); POTASSIUM SERUM 4.4 mmol/L (3.5-5.1); TOTAL PROTEIN, SERUM 6.5 g/dL (6.4-8.2)
[2020-06-29 20:11] LABS: ALBUMIN 2.6 g/dL (3.4-5.0)
[2020-06-29 20:14] LABS: CREATININE SERUM 5.8 mg/dL (0.6-1.0)
[2020-06-29 20:40] VITALS: BP 165/101
== END 2020-06-29 20:40 | disposition home or self-care (01) ==
LOC: ED 17:01
PROVIDERS: Emergency Medicine
DX: M54.9 Dorsalgia, unspecified (principal); G89.29 Other chronic pain; F17.200 Nicotine dependence, unspecified, uncomplicated; I12.0 Hypertensive chronic kidney disease with stage 5 chronic kidney disease or end stage renal disease; N18.6 End stage renal disease; K21.9 Gastro-esophageal reflux disease without esophagitis; J44.9 Chronic obstructive pulmonary disease, unspecified; Z98.51 Tubal ligation status; Z99.2 Dependence on renal dialysis; F11.10 Opioid abuse, uncomplicated
CPT/HCPCS: 99406; Q0092

== ENCOUNTER 2020-07-14 18:18 | Emergency (ER) | payer MEDICAID ==
[~2020-07-14] VITALS: Ht 162.6 cm; Wt 53.5 kg
[2020-07-14 18:27] VITALS: Ht 162.6 cm; Wt 53.5 kg
[2020-07-14 20:05] LABS: BASOPHIL % 0.7 % (0-2); PLATELET COUNT 346 x10^3mcL (130-400); RED CELL DISTRIBUTION WIDTH 14.2 % (11.5-14.5)
[2020-07-14 20:35] LABS: BILIRUBIN TOTAL 0.2 mg/dL (0.20-1.00); CALCIUM 9.2 mg/dL (8.5-10.1); CARBON DIOXIDE 14.1 mmol/L (21-32); POTASSIUM SERUM 4.6 mmol/L (3.5-5.1); TOTAL PROTEIN, SERUM 6.5 g/dL (6.4-8.2)
[2020-07-14 20:36] LABS: ALBUMIN 2.1 g/dL (3.4-5.0)
[2020-07-14 20:39] LABS: CREATININE SERUM 7.2 mg/dL (0.6-1.0)
[2020-07-14 21:45] VITALS: BP 151/97
== END 2020-07-14 21:48 | disposition home or self-care (01) ==
LOC: ED 18:18
PROVIDERS: Emergency Medicine
DX: M54.9 Dorsalgia, unspecified (principal); G89.29 Other chronic pain; I12.0 Hypertensive chronic kidney disease with stage 5 chronic kidney disease or end stage renal disease; N18.6 End stage renal disease; F11.10 Opioid abuse, uncomplicated; J44.9 Chronic obstructive pulmonary disease, unspecified; K21.9 Gastro-esophageal reflux disease without esophagitis; F17.210 Nicotine dependence, cigarettes, uncomplicated; Z98.51 Tubal ligation status; Z99.2 Dependence on renal dialysis
CPT/HCPCS: 83880; 99406; Q0092

== ENCOUNTER 2020-09-21 15:14 | Emergency (ER) | payer MEDICAID ==
[~2020-09-21] VITALS: Ht 162.6 cm; Wt 53.5 kg
[2020-09-21 15:35] VITALS: Ht 162.6 cm; Wt 53.5 kg
[2020-09-21 17:12] LABS: PLATELET COUNT 205 x10^3mcL (130-400)
[2020-09-21 17:25] LABS: CALCIUM 9.1 mg/dL (8.5-10.1); CARBON DIOXIDE 13.5 mmol/L (21-32)
[2020-09-21 17:35] LABS: CREATININE SERUM 6.7 mg/dL (0.6-1.0); POTASSIUM SERUM 5.9 mmol/L (3.5-5.1)
[2020-09-21 18:53] VITALS: BP 158/98
== END 2020-09-21 18:53 | disposition left against medical advice (07) ==
LOC: ED 15:14
PROVIDERS: Emergency Medicine
DX: I12.0 Hypertensive chronic kidney disease with stage 5 chronic kidney disease or end stage renal disease (principal); N18.6 End stage renal disease; E87.5 Hyperkalemia; G89.29 Other chronic pain; M54.9 Dorsalgia, unspecified; J44.9 Chronic obstructive pulmonary disease, unspecified; K21.9 Gastro-esophageal reflux disease without esophagitis; F11.10 Opioid abuse, uncomplicated; Z98.51 Tubal ligation status; Z99.2 Dependence on renal dialysis

== ENCOUNTER 2020-10-20 12:21 | Emergency (ER) | payer MEDICAID ==
[~2020-10-20] VITALS: Ht 165.1 cm; Wt 53.5 kg
[2020-10-20 12:59] VITALS: BP 128/74; Ht 165.1 cm; Wt 53.5 kg
== END 2020-10-20 17:03 | disposition home or self-care (01) ==
LOC: ED 12:21
DX: Z53.21 Procedure and treatment not carried out due to patient leaving prior to being seen by health care provider (principal)

== ENCOUNTER 2020-10-23 15:17 | Emergency (ER) | payer MEDICAID ==
[~2020-10-23] VITALS: Ht 162.6 cm; Wt 54.0 kg
[2020-10-23 16:40] VITALS: BP 147/82; Ht 162.6 cm; Wt 54.0 kg
== END 2020-10-23 21:52 | disposition left against medical advice (07) ==
LOC: ED 15:17
DX: Z53.21 Procedure and treatment not carried out due to patient leaving prior to being seen by health care provider (principal)